=== PATIENT | male | born 1970 | race Caucasian/White ===

== ENCOUNTER → 2024-07-14 | Outpatient (CLI) | payer OTHER, SELFPAY | END | disposition left against medical advice (07) | PROVIDERS: Visit Provider Student in an Organized Health Care Education/Training Program | DX: Z53.21 Procedure and treatment not carried out due to patient leaving prior to being seen by health care provider (principal) ==

== ENCOUNTER 2024-07-20 15:51 | Emergency (ER) | payer MEDICAID, SELFPAY ==
[2024-07-20 15:55] VITALS: PULSE 88; O2SAT 96
--- NOTE | 2024-07-20 15:55 | PC.NURSE ---
PT BROUGHT BY AMBULANCE WITH C/O FOAM FROM WOUND VAC TO ABD STUCK IN WOUND AND CLINIC UNABLE TO REMOVE FOAM. PT STATES HAD SURGERY FOR BOWEL OBSTRUCTION IN MAY AND STATES IT WAS AN EMERGENCY AND I WENT IN THE HOSPITAL ON 05/31 AND GOT OUT 07/03. tHE SURGERY WAS DONE OUT OF STATE.
[2024-07-20 15:57] VITALS: BP 115/86; PULSE 83; RESP 20; TEMP 36.7; O2SAT 99
--- NOTE | 2024-07-20 15:58 | PD.EDADULT ---
ED General RME/HPI General Chief complaint: Skin/Abscess/Foreign Body Stated complaint: WOUND VAC FOAM STUCK IN WOUND Time Seen by Provider: 07/20/24 15:56 Arrival date/time: 07/20/24 15:51 CC: 1: Surgical foam lodged in a abdominal surgical site, 2 culture and sensitivity from surgical site shows Pseudomonas and staph. [facility] requesting antibiotics. The patient presents with no specific complaint other than the abdominal surgical site where he had a code: Resected, wound VAC ribbon placed on the site for the last 4 days removed today the wound is for the most part closed however he states that there is surgical foam embedded in the distal portion of this surgical site and is painful when they attempt to remove it. EMS reports stable vital signs patient is nontoxic-appearing not in any acute distress. Related Data Allergies Allergy/AdvReac Type Severity Reaction Status Date / Time No Known Allergies Allergy Verified 07/20/24 16:15 ED Exam Narrative Physical exam: [General: Obese not in anyacute distress Head normocephalic HEENT: Within acceptable limits Neck is supple nontender Chest equal chest rise nontender to palpation Respiratory: Clear to auscultation no wheezes crackles or rubs CV: Rate rhythm is regular no murmurs rubs or clicks Abdomen is Back: No CVA tenderness no spinous process tenderness from cervical spine thoracic and lumbar spine Skin: Center abdominal vertical surgical site: intact no petechiae rash induration ulceration or crepitus Extremities: Moving all extremity against resistance cap refill less than 2 seconds neurosensory intact Neuro: Awake alert oriented x3 Glascow coma 15 no focal deficits] Course Quality Measures none Orders Category Date Time Status Saline [Insert IV] NOW Care 07/20/24 16:52 Completed Set Up Suture Tray STAT Care 07/20/24 16:52 Completed CBC Stat Lab 07/20/24 16:09 Completed CMP [Comprehensive Metabolic Panel] Stat Lab 07/20/24 16:09 Completed PT [Prothrombin Time with INR] Stat Lab 07/20/24 16:09 Completed PTT [Partial Thromboplastin Time] Stat Lab 07/20/24 16:09 Completed LORazepam [Ativan Inj] Med 07/20/24 16:52 Discontinued 2 mg IVP X1 ONE Sodium Chloride 0.9% 500 ml [Ns] 500 ml Med 07/20/24 16:54 Discontinued IV 999 mls/hr fentaNYL INJ [Sublimaze Inj] Med 07/20/24 16:52 Discontinued 100 mcg IVP X1 ONE Vital Signs Vital signs: Vital Signs Temperature 98.0 F 07/20/24 15:57 Pulse Rate 83 07/20/24 15:57 Respiratory Rate 20 07/20/24 15:57 Blood Pressure 115/86 H 07/20/24 15:57 Pulse Oximetry (%) 99 07/20/24 15:57 Oxygen Delivery Method Room Air 07/20/24 15:57 Procedures -ED Procedure Comment Removal of the surgical foam from the surgical site verbal consent obtained, anesthesia patient given 100 mcg of fentanyl and 2 of Ativan, and under sterile conditions, surgical foam was removed in a single motion without any complications peeling away intact and 1 piece from the open surgical area, there is pink granulated tissue with oozing blood from underneath there no dehiscence induration ulceration, no exudate. Patient tolerated this procedure well wet-to-dry dressing was applied. [facility] Patient data External records reviewed:: [facility] previous records and EMS form Clinical information provided by:: patient and EMS Social determinants that could affect healthcare access:: none Patient has the following chronic illnesses:: Hypertension How is presenting disease/condition affected by chronic disease/condition?: uneffected by Evaluation data The following diagnostics were reviewed and interpreted by me:: lab results Lab and/or radiology exams considered but not ordered:: CBC shows no acute leukocytosis anemia thrombocytopenia CMP shows no significant electrolyte imbalances there is an elevated glucose level no renal impairment transaminitis Interpretation Summary: Patient tolerated removal of the foam without complication Medications Medications considered but not ordered:: None Medication administrations:: Medication Administration History Discontinued Medications Fentanyl Citrate (Fentanyl Cit Inj 50 Mcg/Ml Amp 2ml) 100 mcg IVP X1 ONE Stop: 07/20/24 16:53 Last Admin: 07/20/24 17:44 Dose: 100 mcg Documented By: Dilan Sodium Chloride (Ns) 500 mls @ 999 mls/hr IV .Q31M ONE Stop: 07/20/24 17:24 Last Infusion: 07/20/24 19:03 Dose: Infused Documented By: Admin: 07/20/24 17:41 Dose: 999 mls/hr Documented By: Dilan Lorazepam (Lorazepam 2 Mg/Ml Vial) 2 mg IVP X1 ONE Stop: 07/20/24 16:53 Last Admin: 07/20/24 17:46 Dose: 2 mg Documented By: [facility] None Consultations Consultation(s) initiated? (list below): No Diagnosis Differential Diagnosis ED Complaint MDM: Surgical wound dehiscence, and betterment of surgical foam into the tissue Most likely diagnosis given after review of the tests above:: Embedment of surgical foam into tissue with removal Admission Indicated Admission indicated?: not indicated Explain why admission is indicated or not indicated:: Stable for outpatient follow-up Admission Request Was there a request for admission?: No Disposition Plan Disposition Plan: Discharge Discharge Attestation Discharge Attestation: The patient and all family members were given an opportunity to ask questions and understood the discharge instructions. Discharge instructions specifically effects, indications for sooner follow up or return to the emergency department, and the expected course of current diagnosis. Patient condition: Stable Medical Decision Making Differential Diagnosis Differential Diagnosis: Surgical wound dehiscence, and betterment of surgical foam into the tissue Lab Data 07/20/24 16:09 07/20/24 16:09 Labs: Lab Results 07/20/24 Range/Units 16:09 WBC 7.9 (3.8-10.6) Thou/mm3 RBC 4.30 L (4.50-5.90) Miln/mm3 Hgb 11.9 L (13.5-16.0) g/dL Hct 38.2 L (41.0-53.0) % MCV 89 (80-100) fL MCH 27.7 (25.0-35.0) pg MCHC 31.2 (31.0-37.0) g/dl RDW Std Deviation 69.0 H (35.1-43.9) fL Plt Count 344 (140-440) Thou/mm3 Neut % (Auto) 43 (37-80) % Lymph % (Auto) 49 (10-50) % [place] % (Auto) 6 (0-12) % Eos % (Auto) 1 (0-10) % Baso % (Auto) 1 (0-2.5) % Neut # (Auto) 3.4 (1.8-7.7) Thou/mm3 Lymph # (Auto) 3.9 (1.0-4.8) Thou/mm3 [place] # (Auto) 0.5 (0.0-0.8) Thou/mm3 Eos # (Auto) 0.1 (0.0-0.5) Thou/mm3 Baso # (Auto) 0.0 (0.0-0.2) Thou/mm3 Immature Gran # (Auto) 0.02 H (0.00-0.00) Thou/mm3 Absolute Nucleated RBC 0.00 (0.00-0.00) Thou/mm3 Immature Gran % 0 (0-0) % Nucleated RBC % 0 (0) /100 WBC PT 13.0 H (9.0-12.2) Seconds INR 1.2 (0.9-1.3) APTT 27.9 (22.0-36.0) Seconds Sodium 141 (136-145) mMol/L Potassium 4.3 (3.4-5.1) mMol/L Chloride 108 H (98-107) mMol/L Carbon Dioxide 24.3 (20.0-31.0) mMol/L Anion Gap 9 (7-16) BUN 16 (9-23) mg/dL Creatinine 1.2 (0.6-1.3) mg/dL Estim Creat Clear Calc 93.6 (>60) mL/min eGFR > 60 (60 - ) See Note BUN/Creatinine Ratio 13 (12-20) Ratio Glucose 90 (74-106) mg/dL Calculated Osmolality 282 (275-295) Calcium 8.8 (8.3-10.6) mg/dL Corrected Calcium 8.8 (8.5-10.1) mg/dL Total Bilirubin 0.7 (0.3-1.2) mg/dL AST 23 (0-34) U/L ALT 29 (10-49) U/L Alkaline Phosphatase 82 (46-116) U/L Total Protein 6.7 (5.7-8.2) gm/dL Albumin 4.0 (3.5-5.0) gm/dL Globulin 2.7 (2.3-3.5) gm/dL Albumin/Globulin Ratio 1.5 (1.2-2.2) Discharge Plan Plan Patient Disposition: HOME (Self Care) Patient condition on transfer: Stable Prescriptions/Referrals Referrals: Tamiko Means PA-C ([facility]) [Primary Care Provider] - In 1 week Problem List Clinical Impression: Encounter for post surgical wound check Patient/Caregiver Discharge Instructions Other Activity Instructions:: Continue with your wound VAC, or wet to dry dressing, take the clindamycin as stated you have no signs of an active infection at this time. If there is a worsening of symptoms return the emergency room immediately for further evaluation. Print Language: Singaporean Stand Alone Forms: Chey Award Info., Work/School Release, Patient Portal Info Letter Attestation Attestation The patient was seen by the midlevel practitioner. I, the co-signing physician, was present during the entire ER visit. While I did not physically examine the patient, I was available for consultation as needed.
[2024-07-20 15:59] VITALS: BMI 39.7
[2024-07-20 16:18] LABS: Basophils % (Auto) 1 % (0-2.5); Eosinophils # (Auto) 0.1 Thou/mm3 (0.0-0.5); Eosinophils % (Auto) 1 % (0-10); Hematocrit 38.2 % (41.0-53.0); Hemoglobin 11.9 g/dL (13.5-16.0); Immature Granulocytes % (Auto) 0 % (0-0); Immature Granulocytes Auto 0.02 Thou/mm3 (0.00-0.00); Lymphocytes # (Auto) 3.9 Thou/mm3 (1.0-4.8); Lymphocytes % (Auto) 49 % (10-50); Mean Corpuscular HGB Conc 31.2 g/dl (31.0-37.0); Mean Corpuscular Hemoglobin 27.7 pg (25.0-35.0); Mean Corpuscular Volume 89 fL (80-100); Monocytes # (Auto) 0.5 Thou/mm3 (0.0-0.8); Monocytes % (Auto) 6 % (0-12); Neutrophils # (Auto) 3.4 Thou/mm3 (1.8-7.7); Neutrophils % (Auto) 43 % (37-80); Nucleated Red Blood Cell % 0 /100 WBC (0); Platelet Count 344 Thou/mm3 (140-440); White Blood Count 7.9 Thou/mm3 (3.8-10.6)
[2024-07-20 16:36] LABS: INR 1.2 (0.9-1.3); Partial Thromboplastin Time 27.9 Seconds (22.0-36.0)
[2024-07-20 16:38] LABS: Alanine Aminotransferase 29 U/L (10-49); Albumin/Globulin Ratio 1.5 (1.2-2.2); Alkaline Phosphatase 82 U/L (46-116); Anion Gap 9 (7-16); Aspartate Amino Transferase 23 U/L (0-34); BUN/Creatinine Ratio 13 Ratio (12-20); Bilirubin,Total 0.7 mg/dL (0.3-1.2); Blood Urea Nitrogen 16 mg/dL (9-23); Calcium 8.8 mg/dL (8.3-10.6); Calcium (Corrected) 8.8 mg/dL (8.5-10.1); Carbon Dioxide 24.3 mMol/L (20.0-31.0); Chloride 108 mMol/L (98-107); Creatinine (Component) 1.2 mg/dL (0.6-1.3); Estimated Creatinine Clearance 93.6 mL/min (>60); Globulin 2.7 gm/dL (2.3-3.5); Glucose 90 mg/dL (74-106); Osmolality,Calculated 282 (275-295); Potassium 4.3 mMol/L (3.4-5.1); Sodium 141 mMol/L (136-145); Total Protein 6.7 gm/dL (5.7-8.2); eGFR > 60 See Note
[2024-07-20] MEDS: SODIUM CHLORIDE 0.9% 500 ML 500 ML 999 ML IV (17:41)
[2024-07-20] MEDS: fentaNYL CIT INJ 50 mCg/ML AMP 2ML 100 MCG IVP (17:44)
[2024-07-20] MEDS: LORazepam 2 MG/ML VIAL IVP (17:46)
[2024-07-20 18:00] VITALS: PULSE 83; RESP 18; O2SAT 95
--- NOTE | 2024-07-20 18:23 | PC.NURSE ---
PE VERY SLEEPY S/P FENTANYL AND ATIVAN. WILL DISCHARGE WHEN AWAKE
[2024-07-20 19:41] VITALS: BP 120/88; PULSE 85; RESP 16; O2SAT 98
== END 2024-07-20 19:42 | disposition home or self-care (01) ==
PROVIDERS: Registered Nurse General Practice; Emergency Provider Emergency Medicine; PCP Nurse Practitioner Family
DX: Z48.01 Encounter for change or removal of surgical wound dressing (principal)
CPT/HCPCS: 36415; 80053; 85025; 85610; 85730; 96361; 96374; 96375; 99284; J2060; J3010; J7040

== ENCOUNTER → 2024-08-04 | Outpatient (CLI) | payer MEDICAID, SELFPAY | END | disposition home or self-care (01) | PROVIDERS: PCP Nurse Practitioner Family; Referring Provider Nurse Practitioner Family; Visit Provider Surgery | DX: T81.89XA Other complications of procedures, not elsewhere classified, initial encounter (principal); E11.40 Type 2 diabetes mellitus with diabetic neuropathy, unspecified | CPT/HCPCS: 99214; A9270; G0463 ==

== ENCOUNTER → 2024-10-13 | Outpatient (CLI) | payer MEDICAID, SELFPAY ==
--- NOTE | 2024-10-13 14:49 | XR_ITS ---
Examination: Abdomen 2 views TECHNIQUE: Supine upright abdomen 2 views Exam date and time: October 13, 2024 1519 hours INDICATIONS: Diarrhea nausea vomiting beginning May 2024. FINDINGS: Mild to moderate colonic ileus No free air No obstruction No soft tissue mass IMPRESSION: Mild to moderate colonic ileus
== END | disposition home or self-care (01) ==
LOC: CDIM 14:39
PROVIDERS: PCP Nurse Practitioner Family; Referring Provider Nurse Practitioner Family; Visit Provider Nurse Practitioner Family
DX: K56.7 Ileus, unspecified (principal); Z87.19 Personal history of other diseases of the digestive system
CPT/HCPCS: 74019

== ENCOUNTER 2024-11-17 10:11 | Emergency (ER) | payer MEDICAID, SELFPAY ==
--- NOTE | 2024-11-17 | XR_ITS ---
MRI abdomen, without contrast. MRCP Date and time of exam: November 17, 2024 1338 hours INDICATIONS: Epigastric pain beginning 2 days ago Technique: Multiple axial and coronal images of the abdomen have been obtained with the Siemens 1.5T MRI scanner. Images obtained included T1 weighted transverse images, T2-weighted transverse images, T2-weighted transverse images fat-suppressed, T2 weighted haste fat suppressed transverse images, T1 weighted images, in and out of phase images, T2-weighted coronal images, breath hold, T2 weighted haze coronal images as well as T2 weighted coronal thick slab images, MRCP. Findings: Hepatomegaly, 21 cm, liver mildly irregular in contour No gallstones Gallbladder wall does not appear thickened Common hepatic duct common bile duct 2 to 3 mm no stones No pancreatic mass or peripancreatic edema Moderate bilateral renal parenchymal scar formation No hydronephrosis No ascites Aorta normal size Spleen not enlarged IMPRESSION: Hepatomegaly 21 cm, suspect primary hepatocellular disease Negative for cholelithiasis, negative for cholecystitis Normal common hepatic common bile ducts
[2024-11-17 10:33] VITALS: PULSE 82; O2SAT 96; BMI 35.2
[2024-11-17 10:41] VITALS: PULSE 95
--- NOTE | 2024-11-17 10:54 | PD.EDCHEST ---
ED Chest Pain RME/HPI General Chief Complaint: Chest Pain Stated Complaint: CHESY WALL PAIN Time Seen by Provider: 11/17/24 10:54 Arrival date/time: 11/17/24 10:11 RME / HPI RME / HPI narrative: DR. JANKI CHAVES ED EVALUATION: 54 year old male presents to the Emergency Department BIBA sent by the [facility] for chest pain. Patient states he has been having chest pain for a couple of days but last night at 9 PM it was worse. He states that laying down flat and deep breaths exacerbate his pain. He also mentions that sitting up straight ameliorates his pain. He states he snores a lot but it has been better since he lost 100 pounds last year. Normal appetite reported. He states that last night he ate a sandwich at 6 PM and no problems. Patient also states that he has a cough for 3 months. Patient denies any fevers, chills, sick contacts, or any other symptoms at this time. PMHx: Atrial fibrillation on Eliquis and hypertension. He had 2/3 of the small intestine removed due to ischemia from his atrial fibrillation. Social Hx: No tobacco, alcohol, or substance use. Related Data Allergies Allergy/AdvReac Type Severity Reaction Status Date / Time No Known Allergies Allergy Verified 07/20/24 16:15 Review of Systems Review of Systems Systems Reviewed: All systems reviewed, normal except as documented Past Medical History Past Medical History CARDIAC: Positive Cardiac Disorders, Atrial Fibrillation and Hypertension GASTROINTESTINAL: Positive Obstructive Bowel ENDOCRINE: Positive Diabetes Mellitus Type 2 Surgical History SURGICAL: Positive Abdominal Surgery (BOWEL OBSTRUCTION) Social History SMOKING STATUS: Former smoker SUBSTANCE USE: does not use ALCOHOL: Never ED Exam Narrative Physical exam: GENERAL APPEARANCE: AxOx4, generally well-appearing, no acute distress. HEENT: NC, AT. MMM. EOMI, oropharynx clear. Icteric sclera NECK: Supple without lymphadenopathy. No stiffness or restricted ROM. HEART: Normal rate and regular rhythm, normal S1/S1, no m/r/g LUNGS: CTAB, moving air well. No crackles or wheezes are heard. ABDOMEN: Soft, nontender, nondistended with good bowel sounds heard. BACK: No midline C/T/L spine pain or deformity, No CVAT, no obvious deformity. EXTREMITIES: Without cyanosis, clubbing or edema. MUSCULOSKELETAL: FROM of all major joints, no chest tenderness NEUROLOGICAL: Grossly nonfocal. Alert and oriented, moving all 4 extremities. CN not formally tested but appear grossly intact. Skin: Warm and dry without any rash. Course Quality Measures none Orders Category Date Time Status MRI Screening NOW Care 11/17/24 12:24 Active NPO NOW Care 11/17/24 12:29 Active Diet NPO (NOW) Diet 11/17/24 12:29 Active MR MRCP Stat Exams 11/17/24 Completed US gall bladder Stat Exams 11/17/24 12:23 Completed XR chest 2V Stat Exams 11/17/24 11:04 Completed CBC Stat Lab 11/17/24 11:25 Completed CMP [Comprehensive Metabolic Panel] Stat Lab 11/17/24 11:25 Completed Lipase Stat Lab 11/17/24 11:25 Completed Troponin I Stat Lab 11/17/24 11:25 Completed Famotidine Inj [Pepcid Inj] Med 11/17/24 11:00 Discontinued 40 mg IVP X1 ONE Morphine Inj Med 11/17/24 10:56 Discontinued 4 mg IVP X1 ONE Morphine Inj Med 11/17/24 15:34 Once 4 mg IVP X1 ONE Potassium Chloride [K-Dur] Med 11/17/24 12:06 Discontinued 40 meq PO X1 ONE Sodium Chloride 0.9% 1000 ml [Ns] 1,000 ml Med 11/17/24 12:28 Discontinued IV 999 mls/hr Sodium Chloride 0.9% 1000 ml [Ns] 1,000 ml Med 11/17/24 14:56 Active IV 999 mls/hr Vital Signs Vital signs: Vital Signs Pulse Rate 95 11/17/24 10:41 Chest Pain MDM Narrative MDM Narrative:: IVivian am scribing for and in the presence of Dr. Mancilla. Patient data External records reviewed:: EMS form Clinical information provided by:: patient and EMS Social determinants that could affect healthcare access:: none Patient has the following chronic illnesses:: Atrial fibrillation on Eliquis and hypertension. He had 2/3 of the small intestine removed due to ischemia from his atrial fibrillation. How is presenting disease/condition affected by chronic disease/condition?: exacerbated by Evaluation data The following diagnostics were reviewed and interpreted by me:: lab results and radiology exam(s) Lab and/or radiology exams considered but not ordered:: none Interpretation Summary: Bilirubin 3.0 Potassium 2.6 RADIOLOGY Procedure(s): XR chest 2V Accession Number(s): [id number] cc: Tamiko Means PA-C ([facility]); Scott Mancilla MD; Dieter Morgan MD~ Examination: PA lateral chest 2 views TECHNIQUE: Upright PA lateral chest 2 views Exam date and time: 12/01/2025 1121 hours INDICATIONS: Chest pain beginning last night. FINDINGS: Pneumonia posterior basal segment right lower lobe Mild prominence left ventricle Mild osteopenia Mild to moderate diffuse thoracic degenerative disc disease IMPRESSION: Pneumonia posterior basal segment right lower lobe 8mm pulmonary nodule right lower lobe, in the absence of prior films, recommend 3 month follow-up PA chest Dictated By: Dieter Morgan MD Procedure(s): US gall bladder Accession Number(s): [id number] cc: Tamiko Means PA-C ([facility]); Scott Mancilla MD; Dieter Morgan MD~ Examination: Abdomen sonogram, Limited Date and time of exam: November 17, 2024 at 1242 hours INDICATIONS: Epigastric pain beginning 2 days ago Technique: Real-time vora scale transabdominal sonographic images of the upper abdomen obtained. Findings: Negative for gallstones Gallbladder wall is abnormally thickened, measuring up to 0.81 cm Common bile duct 0.3 cm Pancreatic head 2.8 cm Liver 18 cm lobular contour fatty infiltration Normal hepatopedal portal venous flow Patent IVC IMPRESSION: Suspicious for acalculous cholecystitis, recommend MRCP or HIDA scan follow-up Dictated By: Dieter Morgan MD Procedure(s): MR MRCP Accession Number(s): [id number] cc: Tamiko Means PA-C ([facility]); Scott Mancilla MD; Dieter Morgan MD~ MRI abdomen, without contrast. MRCP Date and time of exam: November 17, 2024 1338 hours INDICATIONS: Epigastric pain beginning 2 days ago Technique: Multiple axial and coronal images of the abdomen have been obtained with the Siemens 1.5T MRI scanner. Images obtained included T1 weighted transverse images, T2-weighted transverse images, T2-weighted transverse images fat-suppressed, T2 weighted haste fat suppressed transverse images, T1 weighted images, in and out of phase images, T2-weighted coronal images, breath hold, T2 weighted haze coronal images as well as T2 weighted coronal thick slab images, MRCP. Findings: Hepatomegaly, 21 cm, liver mildly irregular in contour No gallstones Gallbladder wall does not appear thickened Common hepatic duct common bile duct 2 to 3 mm no stones No pancreatic mass or peripancreatic edema Moderate bilateral renal parenchymal scar formation No hydronephrosis No ascites Aorta normal size Spleen not enlarged IMPRESSION: Hepatomegaly 21 cm, suspect primary hepatocellular disease Negative for cholelithiasis, negative for cholecystitis Normal common hepatic common bile ducts Dictated By: Dieter Morgan MD Medications / Prescriptions Medications or Prescriptions considered but not ordered:: none Medication administrations:: Medication Administration History Sodium Chloride (Ns) 1,000 mls @ 999 mls/hr IV .Q1H1M ONE Stop: 11/17/24 15:56 Morphine Sulfate (Morphine Sulf Inj 10 Mg/Ml Vial) 4 mg IVP X1 ONE Stop: 11/17/24 15:35 Discontinued Medications Famotidine (Famotidine Inj 10 Mg/Ml Vial 2 Ml) 40 mg IVP X1 ONE Stop: 11/17/24 11:01 Last Admin: 11/17/24 12:42 Dose: 40 mg Documented By: LP Sodium Chloride (Ns) 1,000 mls @ 999 mls/hr IV .Q1H1M ONE Stop: 11/17/24 13:28 Last Admin: 11/17/24 12:44 Dose: 999 mls/hr Documented By: LP Morphine Sulfate (Morphine Sulf Inj 10 Mg/Ml Vial) 4 mg IVP X1 ONE Stop: 11/17/24 10:57 Last Admin: 11/17/24 12:42 Dose: 4 mg Documented By: LP Potassium Chloride (Potassium Chloride 20 Meq Tabcr) 40 meq PO X1 ONE Stop: 11/17/24 12:07 Last Admin: 11/17/24 12:43 Dose: 40 meq Documented By: LP see above Consultations Consultation(s) initiated? (list below): No Diagnosis Chest Pain Differential Diagnosis: atypical chest pain, st elevation myocardial infarction, costochondritis, chest pain and biliary colic Most likely diagnosis given after review of the tests above:: Acute epigastric pain Jaundice Admission Indicated Admission indicated?: not indicated Admission Request Was there a request for admission?: No Disposition Plan Disposition Plan: Discharge Discharge Attestation Discharge Attestation: The patient and all family members were given an opportunity to ask questions and understood the discharge instructions. Discharge instructions specifically effects, indications for sooner follow up or return to the emergency department, and the expected course of current diagnosis. Patient condition: Stable Discharge Plan Plan Patient Disposition: HOME (Self Care) Prescriptions/Referrals Referrals: Tamiko Means PA-C ([facility]) [Primary Care Provider] - In 1 week Problem List Clinical Impression: Acute epigastric pain, Jaundice Patient/Caregiver Discharge Instructions Education Materials: ED Epigastric Pain (Uncertain Cause) Additional Instructions: You can take [id number] famotidine (Pepcid), 20 mg twice a day for the next 7 days. For the meantime consider readdressing any dietary indiscretion such as high fatty and sugary foods. Avoid alcohol and Tylenol until further testing is done but with your primary care doctor. Also it would be prudent to recontact the gastroenterology referral that she had for a follow-up appointment as well. Feel free return to the emerged department sooner if symptoms worsen or if notes any new, concerning issues Print Language: Lithuanian Stand Alone Forms: [employer]y Award Info., Patient Portal Info Letter
--- NOTE | 2024-11-17 11:04 | XR_ITS ---
Examination: PA lateral chest 2 views TECHNIQUE: Upright PA lateral chest 2 views Exam date and time: 12/01/2025 1121 hours INDICATIONS: Chest pain beginning last night. FINDINGS: Pneumonia posterior basal segment right lower lobe Mild prominence left ventricle Mild osteopenia Mild to moderate diffuse thoracic degenerative disc disease IMPRESSION: Pneumonia posterior basal segment right lower lobe 8mm pulmonary nodule right lower lobe, in the absence of prior films, recommend 3 month follow-up PA chest
[2024-11-17 11:08] VITALS: BP 137/104; PULSE 91; RESP 27; TEMP 37.4; O2SAT 90
[2024-11-17 11:38] LABS: Basophils % (Auto) 1 % (0-2.5); Eosinophils % (Auto) 1 % (0-10); Hematocrit 34.5 % (41.0-53.0); Hemoglobin 11.4 g/dL (13.5-16.0); Immature Granulocytes % (Auto) 0 % (0-0); Immature Granulocytes Auto 0.02 Thou/mm3 (0.00-0.00); Lymphocytes # (Auto) 1.8 Thou/mm3 (1.0-4.8); Lymphocytes % (Auto) 20 % (10-50); Mean Corpuscular Hemoglobin 28.3 pg (25.0-35.0); Mean Corpuscular Volume 86 fL (80-100); Monocytes # (Auto) 0.7 Thou/mm3 (0.0-0.8); Monocytes % (Auto) 8 % (0-12); Neutrophils # (Auto) 6.2 Thou/mm3 (1.8-7.7); Neutrophils % (Auto) 70 % (37-80); Nucleated Red Blood Cell % 0 /100 WBC (0); Platelet Count 193 Thou/mm3 (140-440); RDW Standard Deviation 46.1 fL (35.1-43.9); Red Blood Count 4.03 Miln/mm3 (4.50-5.90); White Blood Count 8.8 Thou/mm3 (3.8-10.6)
[2024-11-17 11:58] LABS: Alanine Aminotransferase 27 U/L (10-49); Albumin, Serum 4.2 gm/dL (3.5-5.0); Albumin/Globulin Ratio 1.6 (1.2-2.2); Alkaline Phosphatase 66 U/L (46-116); Anion Gap 12 (7-16); Aspartate Amino Transferase 15 U/L (0-34); BUN/Creatinine Ratio 12 Ratio (12-20); Blood Urea Nitrogen 17 mg/dL (9-23); Calcium 7.9 mg/dL (8.3-10.6); Calcium (Corrected) 7.9 mg/dL (8.5-10.1); Carbon Dioxide 24.6 mMol/L (20.0-31.0); Chloride 108 mMol/L (98-107); Creatinine (Component) 1.4 mg/dL (0.6-1.3); Estimated Creatinine Clearance 74.5 mL/min (>60); Globulin 2.7 gm/dL (2.3-3.5); Glucose 97 mg/dL (74-106); Lipase 23 U/L (12-53); Osmolality,Calculated 290 (275-295); Sodium 145 mMol/L (136-145); Total Protein 6.9 gm/dL (5.7-8.2); Troponin I 0.044 ng/mL (0.0-0.045); eGFR 59 See Note
[2024-11-17 12:01] LABS: Potassium 2.6 mMol/L (3.4-5.1)
--- NOTE | 2024-11-17 12:03 | PC.NURSE ---
Call from [facility] in lab; pt's potassium 2.6. Provider will be informed.
--- NOTE | 2024-11-17 12:23 | XR_ITS ---
Examination: Abdomen sonogram, Limited Date and time of exam: November 17, 2024 at 1242 hours INDICATIONS: Epigastric pain beginning 2 days ago Technique: Real-time vora scale transabdominal sonographic images of the upper abdomen obtained. Findings: Negative for gallstones Gallbladder wall is abnormally thickened, measuring up to 0.81 cm Common bile duct 0.3 cm Pancreatic head 2.8 cm Liver 18 cm lobular contour fatty infiltration Normal hepatopedal portal venous flow Patent IVC IMPRESSION: Suspicious for acalculous cholecystitis, recommend MRCP or HIDA scan follow-up
[2024-11-17] MEDS: MORPHINE SULF INJ 10 MG/ML VIAL 4 MG IVP ×2 (12:42→15:56)
[2024-11-17] MEDS: FAMOTIDINE INJ 10 MG/ML VIAL 2 ML 40 MG IVP (12:42)
[2024-11-17] MEDS: POTASSIUM CHLORIDE 20 mEq TABCR 40 MEQ PO (12:43)
[2024-11-17] MEDS: SODIUM CHLORIDE 0.9% 1000 ML 1,000 ML 999 ML IV ×2 (12:44→15:57)
[2024-11-17 14:46] VITALS: BP 143/100; PULSE 103; RESP 26; TEMP 36.8; O2SAT 94
[2024-11-17 16:18] VITALS: BP 131/102; PULSE 99; RESP 23; TEMP 36.9; O2SAT 91
[2024-11-17 17:40] VITALS: BP 119/94; PULSE 97; RESP 22; TEMP 37
== END 2024-11-17 17:40 | disposition home or self-care (01) ==
PROVIDERS: Emergency Provider Emergency Medicine; PCP Nurse Practitioner Family
DX: R10.13 Epigastric pain (principal); R17 Unspecified jaundice; R07.9 Chest pain, unspecified
CPT/HCPCS: 36415; 71046; 76705; 80053; 83690; 84484; 85025; 96361; 96374; 96375; 96376; 99284; J2270; J3490; J7030; S8037; 74181; A9270

== ENCOUNTER 2024-11-29 17:49 | Inpatient (IN) | payer MEDICAID, SELFPAY ==
[2024-11-29] VITALS (10 sets, daily range): BP systolic 92–143; BP diastolic 72–95; PULSE 87–129; RESP 17–90; TEMP 36–37.9; O2SAT 90–99; BMI 35.2
--- NOTE | 2024-11-29 18:03 | EKG_ITS ---
[facility] Test Date: 2024-11-29 Pat Name: CATHERINE JAMES Department: Room: - Gender: Male Beef Ribber: : 1970 Requested By: ED Temporary Provider Order Number: [id number] Reading MD: ED Temporary Provider Measurements Intervals [place] Rate: 141 P: [place]: QRS: -83 QRSD: 103 T: 84 QT: 322 QTc: 494 Interpretive Statements ATRIAL FIBRILLATION WITH RAPID VENTRICULAR RESPONSE WITH ABERRANT CONDUCTION OR VENTRICULAR PREMATURE COMPLEXES LEFT AXIS DEVIATION [QRS AXIS < -30] SEPTAL MYOCARDIAL INFARCTION , PROBABLY OLD [40+ ms Q WAVE IN V1/V2] No previous ECG available for comparison /[id number]/[email or web address]/[id number]
--- NOTE | 2024-11-29 18:10 | PD.EDSOB ---
ED SOB =RME/HPI General Chief Complaint: Shortness of Breath/Dyspnea Stated Complaint: SOB Time Seen by Provider: 11/29/24 18:10 Arrival date/time: 11/29/24 17:49 RME / HPI RME / HPI Narrative: This section includes all my notes and documentations, including HPI, PE, and ED course. Chencho Keating MD HPI: 54-year-old male with several days of worsening cough, productive cough, purulent sputum, and dyspnea. 3 neb treatments given by EMS. No chest pain. No obvious fever. No other complaints. ROS: All negative except as documented in HPI. Physical Exam: General: Alert and oriented. In mild respiratory distress. Eyes: Conjunctivae and lids clear. ENT: No nasal congestion. Neck: Supple. Heart: Atrial fibrillation with RVR (150 bpm). Lungs: Mild respiratory distress. Moderately decreased air movement with rales. Abdomen: Soft and nontender. Back: No CVA tenderness. Skin: Warm and dry. Neuro: Alert and oriented X 3. I reviewed all diagnostic test results. My interpretation of the EKG is atrial fibrillation with RVR. My interpretation of the chest x-ray is no acute findings. Blood tests and urine tests remarkable for K 2.7, CR 1.8, Mg < 0.5, troponin 0.073, BNP 1068. At this point, diagnoses include acute respiratory failure, atrial fibrillation with RVR, hypokalemia, hypomagnesemia, elevated troponin, and ANANYA. Treatment here included Cardizem bolus and drip, Solu-Medrol, KCl, and MgSO4 IV. I discussed the case with our hospitalist. About the presentation and exam and diagnostics and treatments here. And need of further care in the hospital. Will accept the patient. Chencho Keating MD Related Data Allergies Allergy/AdvReac Type Severity Reaction Status Date / Time No Known Allergies Allergy Verified 11/29/24 18:03 Course Quality Measures none Orders Category Date Time Status Bedside COVID-19 Antigen Test NOW Care 11/29/24 19:35 Active COVID-19 Screening Questionnaire NOW Care 11/29/24 20:48 Completed Decision to Admit X1 Care 11/29/24 20:47 Active EKG (ED ONLY) *Do not use* NOW Care 11/29/24 18:03 Completed Saline [Insert IV] NOW Care 11/29/24 18:10 Active EKG (ED Only) Stat Exams 11/29/24 18:03 Draft XR chest 1V portable Stat Exams 11/29/24 18:11 Completed ABG [Arterial Blood Gas] Stat Lab 11/29/24 20:14 Completed BNP [B-Type Natriuretic Peptide] Stat Lab 11/29/24 18:18 Completed CBC Stat Lab 11/29/24 18:18 Completed CMP [Comprehensive Metabolic Panel] Stat Lab 11/29/24 18:18 Completed D-Dimer Stat Lab 11/29/24 18:18 Completed Magnesium Stat Lab 11/29/24 18:18 Completed RSV [Respiratory Syncytial Virus Ag] Stat Lab 11/29/24 18:12 Ordered TSH [Thyroid Stimulating Hormone] Stat Lab 11/29/24 18:18 Completed Troponin I Stat Lab 11/29/24 18:18 Completed UA, C/S IF [Urinalysis, C/S if Indicated] Stat Lab 11/29/24 18:16 Completed DILTIAZEM in D5W 125 MG Med 11/29/24 18:10 Active 125 mg in 125 ml IV 5 mg/hr Diltiazem Inj [Cardizem Inj] Med 11/29/24 18:10 Discontinued 20 mg IV X1 ONE KCL 10% Liq UDC 15 ML Med 11/29/24 18:58 Discontinued 40 meq PO X1 ONE Ketorolac Inj [Toradol Inj] Med 11/29/24 18:42 Discontinued 30 mg IVP X1 ONE Magnesium Sulfate 4 GM Ivpb [Magnesium Sulfate Ivpb] Med 11/29/24 18:58 Active 4 gm in 50 ml IV X1 MethylPREDNISolone.* [SoluMEDROL Inj] Med 11/29/24 18:10 Discontinued 125 mg IVP X1 ONE Morphine Inj Med 11/29/24 18:42 Discontinued 4 mg IVP X1 ONE Vital Signs Vital signs: Vital Signs Temperature 98.9 F 11/29/24 18:04 Pulse Rate 129 H 11/29/24 18:04 Respiratory Rate 17 11/29/24 18:04 Blood Pressure 143/95 H 11/29/24 18:04 Pulse Oximetry (%) 90 L 11/29/24 18:04 Oxygen Delivery Method Room Air 11/29/24 18:04 Shortness of Breath / Dyspnea Patient data External records reviewed:: [facility] previous records Clinical information provided by:: patient and EMS Social determinants that could affect healthcare access:: none Patient has the following chronic illnesses:: COPD, CHF, atrial fibrillation with RVR How is presenting disease/condition affected by chronic disease/condition?: exacerbated by Evaluation data The following diagnostics were reviewed and interpreted by me:: lab results, radiology exam(s) and EKG tracing(s) (My interpretation of the EKG is: Atrial fibrillation with RVR (141 bpm) with nonspecific ST-T changes. Chencho Keating MD) Lab and/or radiology exams considered but not ordered:: None Interpretation Summary: acute respiratory failure, atrial fibrillation with RVR, hypokalemia, hypomagnesemia, elevated troponin, and ANANYA Medications / Prescriptions Medications or Prescriptions considered but not ordered:: None Medication administrations:: Medication Administration History Acetaminophen (Acetaminophen 325 Mg Tablet) 650 mg PO Q6H PRN PRN Reason: Fever >100.3 or pain 1-3 Stop: 12/29/24 20:49 Apixaban (Apixaban 2.5 Mg Tablet) 5 mg PO BID [facility] Stop: 12/29/24 20:59 Diltiazem HCl (Diltiazem In D5w 125 Mg) 125 mg in 125 mls @ 5 mls/hr IV .Q24H ONE; Protocol Stop: 11/30/24 18:09 Last Admin: 11/29/24 18:56 Dose: 5 mg/hr, 5 mls/hr Documented By: AA Magnesium Sulfate (Magnesium Sulfate Ivpb) 4 gm in 50 mls @ 12.5 mls/hr IV X1 ONE Stop: 11/29/24 22:57 Last Admin: 11/29/24 19:24 Dose: 12.5 mls/hr Documented By: EE Magnesium Sulfate (Magnesium Sulfate Ivpb) 4 gm in 50 mls @ 12.5 mls/hr IV X1 ONE Stop: 11/30/24 02:59 Potassium Chloride (Kcl Ivpb) 10 meq in 100 mls @ 100 mls/hr IV Q1H [facility] Stop: 11/30/24 00:59 Levalbuterol HCl (Levalbuterol Rt 0.63 Mg/3 Ml Nebu) 0.63 mg INH Q4HRRT PRN PRN Reason: wheezing Stop: 12/29/24 22:59 Ondansetron HCl (Ondansetron Inj 2 Mg/Ml Inj 2 Ml) 4 mg IV Q6H PRN; Protocol PRN Reason: NAUSEA OR VOMITING Stop: 12/29/24 20:49 Sennosides (Senna Tablet) 1 tab PO QDAY PRN; Protocol PRN Reason: constipation Stop: 12/29/24 20:49 Discontinued Medications Diltiazem HCl (Diltiazem Inj 5 Mg/Ml Vial 5 Ml) 20 mg IV X1 ONE Stop: 11/29/24 18:11 Last Admin: 11/29/24 18:22 Dose: 20 mg Documented By: AA Ketorolac Tromethamine (Ketorolac Inj 30 Mg/Ml Vial) 30 mg IVP X1 ONE Stop: 11/29/24 18:43 Last Admin: 11/29/24 19:22 Dose: 30 mg Documented By: EE Methylprednisolone Sodium Succinate (Methylprednisolone Sod Succ 62.5 Mg/Ml 2ml Vial) 125 mg IVP X1 ONE Stop: 11/29/24 18:11 Last Admin: 11/29/24 18:21 Dose: 125 mg Documented By: AA Morphine Sulfate (Morphine Sulf Inj 10 Mg/Ml Vial) 4 mg IVP X1 ONE Stop: 11/29/24 18:43 Last Admin: 11/29/24 19:24 Dose: 4 mg Documented By: EE Potassium Chloride (Potassium Chloride 10% 20 Meq/15 Ml Udc) 40 meq PO X1 ONE Stop: 11/29/24 18:59 Last Admin: 11/29/24 19:24 Dose: 40 meq Documented By: EE Treatment here from md included Cardizem bolus and drip, Solu-Medrol, KCl, and MgSO4 IV. Consultations Consultation(s) initiated? (list below): No Diagnosis Shortness of Breath Differential Diagnosis: acute exacerbation of chronic obstructive airways disease, congestive heart failure, community acquired pneumonia, asthma with exacerbation and pulmonary embolism Most likely diagnosis given after review of the tests above:: acute respiratory failure, atrial fibrillation with RVR, hypokalemia, hypomagnesemia, elevated troponin, and ANANYA Admission Indicated Admission indicated?: indicated Explain why admission is indicated or not indicated:: acute respiratory failure, atrial fibrillation with RVR, hypokalemia, hypomagnesemia, elevated troponin, and ANANYA Admission Request Was there a request for admission?: Yes Admission Attestation Admission request attestation: Discussed case with Hospitalist service regarding admission. Discussed patients ED course, exam findings, labs, and radiology results. The Hospitalist [agrees] to accept the patient for admission. Disposition Plan Disposition Plan: Admit Discharge Plan Plan Patient Disposition: Admit Acute Care w/in Hospital Problem List Clinical Impression: Acute respiratory failure with hypoxia, Hypokalemia, Hypomagnesemia, ANANYA (acute kidney injury), Elevated troponin, Atrial fibrillation with RVR
--- NOTE | 2024-11-29 18:11 | XR_ITS ---
Examination: AP chest single view FINDINGS: AP portable upright chest single view Examination type: November 29, 2024 1832 hours Comparison November 17, 2024 INDICATIONS: Shortness of breath today. FINDINGS: Mild to moderate enlargement cardiac contour Moderate elevation right hemidiaphragm Calcified granuloma in the right lower lung zone No lobar pneumonia or pulmonary edema IMPRESSION: Mild to moderate enlargement cardiac contour No pneumonia or pulmonary edema
[2024-11-29] MEDS: MethylPREDNISolone SOD SUCC 62.5 MG/ML 2ML VIAL 125 MG IVP (18:21)
[2024-11-29] MEDS: DILTIAZEM INJ 5 MG/ML VIAL 5 ML 20 MG IV (18:22)
[2024-11-29 18:27] LABS: Collection Type, Urine Clean Catch; Squamous Epithelial Cell,Urine 0 /hpf (0-5)
[2024-11-29 18:27] LABS: Basophils # (Auto) 0.1 Thou/mm3 (0.0-0.2); Basophils % (Auto) 1 % (0-2.5); Eosinophils % (Auto) 0 % (0-10); Hematocrit 35.8 % (41.0-53.0); Hemoglobin 11.6 g/dL (13.5-16.0); Immature Granulocytes % (Auto) 0 % (0-0); Immature Granulocytes Auto 0.03 Thou/mm3 (0.00-0.00); Lymphocytes # (Auto) 2.6 Thou/mm3 (1.0-4.8); Lymphocytes % (Auto) 27 % (10-50); Mean Corpuscular HGB Conc 32.4 g/dl (31.0-37.0); Mean Corpuscular Hemoglobin 29.1 pg (25.0-35.0); Mean Corpuscular Volume 90 fL (80-100); Monocytes # (Auto) 0.5 Thou/mm3 (0.0-0.8); Monocytes % (Auto) 5 % (0-12); Neutrophils # (Auto) 6.3 Thou/mm3 (1.8-7.7); Neutrophils % (Auto) 67 % (37-80); Nucleated Red Blood Cell % 0 /100 WBC (0); Platelet Count 240 Thou/mm3 (140-440); RDW Standard Deviation 52.4 fL (35.1-43.9); Red Blood Count 3.98 Miln/mm3 (4.50-5.90); White Blood Count 9.5 Thou/mm3 (3.8-10.6)
[2024-11-29 18:30] LABS: Bilirubin,Urine Negative (Negative); Blood,Urine Negative (Negative); Clarity,Urine Clear (Clear/Hazy); Color,Urine Lt-Yellow (Lt Yel-Yel); Culture Indicated,Urine Not Indicated; Glucose, Urine Negative (Negative); Ketones,Urine Negative (Negative); Leukocyte Esterase,Urine Negative (Negative); Nitrite,Urine Negative (Negative); PH,Urine 6.5 (5.0-7.0); Protein,Urine Trace (Neg - Trace); RBC,Urine 1 /hpf (0-3); Specific Gravity,Urine 1.007 (1.001-1.035); Urobilinogen,Urine Negative mg/dL (0.0-1.0); WBC,Urine 1 /hpf (0-5)
--- NOTE | 2024-11-29 18:40 | PC.NURSE ---
Patient refused covid and flu testing, did not want a swab all the way up my nose into my brain. Dr Keating made aware.
[2024-11-29 18:45] LABS: Alanine Aminotransferase 22 U/L (10-49); Albumin, Serum 4.1 gm/dL (3.5-5.0); Albumin/Globulin Ratio 1.5 (1.2-2.2); Alkaline Phosphatase 58 U/L (46-116); Anion Gap 13 (7-16); Aspartate Amino Transferase 16 U/L (0-34); B-Type Natriuretic Peptide 1068 pg/mL (0-100); BUN/Creatinine Ratio 9 Ratio (12-20); Bilirubin,Total 2.8 mg/dL (0.3-1.2); Blood Urea Nitrogen 16 mg/dL (9-23); Calcium 7.8 mg/dL (8.3-10.6); Calcium (Corrected) 7.8 mg/dL (8.5-10.1); Carbon Dioxide 22.9 mMol/L (20.0-31.0); Chloride 109 mMol/L (98-107); Creatinine (Component) 1.8 mg/dL (0.6-1.3); Estimated Creatinine Clearance 57.9 mL/min (>60); Globulin 2.8 gm/dL (2.3-3.5); Glucose 101 mg/dL (74-106); Osmolality,Calculated 289 (275-295); Sodium 145 mMol/L (136-145); Total Protein 6.9 gm/dL (5.7-8.2); eGFR 44 See Note
--- NOTE | 2024-11-29 18:50 | PC.NURSE ---
Patient presents to ED via [facility] ambulance with c/o SOB/wheezing x4 days. Per patient has been coughing for a month but now has worsened, patient is being treated for pneumonia and taking abx. Patient is alert and oriented, ambulatory. Patient was treated with albuterol neb inh x 3 prior to arrival with improvement, patient has green phlegm coughing up. Patient with hx of Afib.
[2024-11-29 18:52] LABS: D-Dimer 1240 ng/mL (<600)
[2024-11-29 18:54] LABS: Thyroid Stimulating Hormone 1.08 uIU/mL (0.55-4.78)
[2024-11-29] MEDS: DILTIAZEM in D5W 125 MG 125 MG/125 ML BAG IV ×2 (18:56→23:04)
[2024-11-29 18:57] LABS: Magnesium < 0.5 mg/dL (1.6-2.6)
[2024-11-29 18:58] LABS: Potassium 2.7 mMol/L (3.4-5.1); Troponin I 0.073 ng/mL (0.0-0.045)
[2024-11-29] MEDS: KETOROLAC INJ 30 MG/ML VIAL IVP (19:22)
[2024-11-29] MEDS: MORPHINE SULF INJ 10 MG/ML VIAL 4 MG IVP (19:24)
[2024-11-29] MEDS: Magnesium Sulfate 4 GM Ivpb 4 GM/50 ML BAG IV ×2 (19:24→23:03)
[2024-11-29] MEDS: POTASSIUM CHLORIDE 10% 20 MEQ/15 ML UDC 40 MEQ PO (19:24)
[2024-11-29 20:27] LABS: Base Excess -3 (-3-3); HCO3 22 mEq/L (20-26); Inspired O2, VO2 Liters 2 L/min; Inspired Oxygen, FIO2 21 %; O2 Saturation 93 % (91-98); PCO2 38 mmHg (32.0-48.0); PO2 78 mmHg (83-108); pH, Arterial 7.37 (7.35-7.45)
[2024-11-29 21:11] LABS: Allen Test Performed/OK; Puncture Site Right Radial
[2024-11-29] MEDS: APIXABAN 2.5 MG TABLET 5 MG PO (21:32)
[2024-11-29] MEDS: POTASSIUM CHL 10 mEq IVPB 10 MEQ/100 ML BAG 100 MEQ IV ×3 (21:34→23:57)
[2024-11-29 21:45] LABS: Cardiac Risk Estimate 2.9 RATIO (4.0-6.7); Cholesterol 97 mg/dL (132-200); HDL Cholesterol 33 mg/dL (40-60); LDL Cholesterol,Calculated 46 mg/dL (0-130); Triglycerides 91 mg/dL (30-150)
--- NOTE | 2024-11-29 22:29 | PD.RESHP ---
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 He reported that he started having productive cough with greenish sputum, noticed shortness of breath while resting, was not able to sleep in a reclined position and also 2 weeks ago he had chest pain. He went to the PCP and was recommended to go to the ED in the ED imaging revealed pneumonia and 8 mm pulmonary nodule in the right lower lobe. On the questioning, patient also reports that after his small bowel resection he experienced frequent diarrhea, every day, more than 10 times a day and reports feeling general weakness. He also reports he was prescribed potassium pills, but was not able to pick them up yet. He is shortness of breath and chest tightness continued and he came to the ED on 11/29/2024. ED course: Blood pressure 143/95, heart rate 129, irregular, saturation 90% on room air. Labs showed hemoglobin of 11.6, hematocrit 35.8, D-dimer 1240, ABG showed pH of 7.37, pCO2 38, pO2 78 L. Sodium 145, potassium 2.7, chloride 109, anion gap 13, creatinine 1.8, EGFR 44, magnesium less than 0.5, total bilirubin 2.8. Initial troponin I is 0.0 73, BNP 1068, LDL 46, HDL 33, cholesterol 97, TSH 1.08. UA was negative for signs of UTI. Chest x-ray showed mild to moderate enlargement of cardiac contour, no pneumonia or pulmonary edema. In the ED patient was started on diltiazem drip, received methylprednisolone 125 mg, pain medication, potassium tablet, magnesium IV. Patient denies recent immobilization, history of cancer. Patient's java programmer analyst is Dr. Terry and patient is reporting that he's getting pacemaker in 30 days , waiting for the appointment with exchange specialist. Patient is going to be admitted for A-fib with RVR rate control and management. 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 Denies smoking, drinks alcohol 1 can of beer in 6 months, denies recreational substances. Allergies: Denies allergies Surgeries: Small bowel resection in May 2024. Medications: Eliquis 5 mg (prescribed twice daily, takes only once daily), carvedilol 6.25 twice daily, valsartan 80 mg. Review of Systems Review of Systems Systems Reviewed: All systems reviewed, normal except as documented Past Medical History Past Medical History CARDIAC: Positive Cardiac Disorders, Atrial Fibrillation and Hypertension GASTROINTESTINAL: Positive Obstructive Bowel ENDOCRINE: Positive Diabetes Mellitus Type 2 Surgical History SURGICAL: Positive Abdominal Surgery (BOWEL OBSTRUCTION) Social History SMOKING STATUS: Former smoker SUBSTANCE USE: does not use ALCOHOL: Never Exam Vital Signs Temp Pulse Resp BP Pulse Ox O2 Del Method O2 Flow Rate 100.2 F 96 19 111/86 H 94 L Nasal Cannula 2 11/29/24 19:31 11/29/24 21:00 11/29/24 21:00 11/29/24 21:00 11/29/24 21:00 11/29/24 21:00 11/29/24 21:00 Narrative Exam Physical Exam General: Awake and in no acute distress. Conversational and non-toxic appearing. HEENT: Normocephalic, atraumatic, mucous membranes moist. Heart: Irregular rate and rhythm, no murmurs. Lungs: Clear to auscultation with no wheezing or crackles. Abdomen: Soft, nondistended, nontender, positive bowel sounds. ?No guarding or rebound tenderness. Midline laparotomy scar. Neurologic: Alert and oriented x3, no gross neurological deficit, and patient able to move all 4 extremities. Extremities: No edema. Skin: No rash or ecchymoses. Results: Labs 11/29/24 18:18 11/29/24 18:18 Labs: Short CBC 11/29/24 Range/Units 18:18 WBC 9.5 (3.8-10.6) Thou/mm3 Hgb 11.6 L (13.5-16.0) g/dL Hct 35.8 L (41.0-53.0) % Plt Count 240 D (140-440) Thou/mm3 BMP 11/29/24 18:18 Sodium 145 Potassium 2.7 L* Chloride 109 H Carbon Dioxide 22.9 BUN 16 Creatinine 1.8 H Glucose 101 Calcium 7.8 L Cardiac Enzymes 11/29/24 Range/Units 18:18 Troponin I 0.073 H* (0.0-0.045) ng/mL Liver Function 11/29/24 Range/Units 18:18 Total Bilirubin 2.8 H (0.3-1.2) mg/dL AST 16 (0-34) U/L ALT 22 (10-49) U/L Alkaline Phosphatase 58 (46-116) U/L Albumin 4.1 (3.5-5.0) gm/dL Urine 11/29/24 Range/Units 18:16 Urine Color Lt-Yellow (Lt Yel-Yel) Urine Clarity Clear (Clear/Hazy) Urine pH 6.5 (5.0-7.0) Ur Specific [place] 1.007 (1.001-1.035) Urine Protein Trace (Neg - Trace) Urine Glucose (UA) Negative (Negative) ABG Interpretation ABG results: 11/29/24 20:14 ABG pH 7.37 ABG pCO2 38 ABG pO2 78 L ABG HCO3 22 ABG O2 Saturation 93 ABG Base Excess -3 Quality Measures Quality Measures VTE prophylaxis Medications Home Medications and Allergies Home Medications ?Medication ?Instructions ?Recorded ?Confirmed ?Type amiodarone 100 mg tablet 100 mg PO BID Afib 11/29/24 11/29/24 History apixaban 5 mg tablet (Eliquis) 5 mg PO Q12H blood thinner 11/29/24 11/29/24 History carvedilol 6.25 mg tablet 6.25 mg PO BID 11/29/24 11/29/24 History dapagliflozin propanediol 10 mg 10 mg PO DAILY diabetes 11/29/24 11/29/24 History tablet (Farxiga) famotidine 20 mg tablet 20 mg PO QDAY gerd 11/29/24 11/29/24 History loperamide 2 mg capsule 2 mg PO QDAY diahrrea 11/29/24 11/29/24 History losartan 50 mg tablet 50 mg PO QDAY hypertension 11/29/24 11/29/24 History sacubitril 24 mg-valsartan 26 mg 1 tab PO QDAY chf 11/29/24 11/29/24 History tablet (Entresto) Allergies Allergy/AdvReac Type Severity Reaction Status Date / Time No Known Allergies Allergy Verified 11/29/24 18:03 Visit Medications Acetaminophen (Acetaminophen 325 Mg Tablet) 650 mg PO Q6H PRN PRN Reason: Fever >100.3 or pain 1-3 Stop: 12/29/24 20:49 Apixaban (Apixaban 2.5 Mg Tablet) 5 mg PO BID [facility]ZETTE Stop: 12/29/24 20:59 Last Admin: 11/29/24 21:32 Dose: 5 mg Diltiazem HCl (Diltiazem In D5w 125 Mg) 125 mg in 125 mls @ 5 mls/hr IV .Q24H ONE; Protocol Stop: 11/30/24 18:09 Last Admin: 11/29/24 18:56 Dose: 5 mg/hr, 5 mls/hr Magnesium Sulfate (Magnesium Sulfate Ivpb) 4 gm in 50 mls @ 12.5 mls/hr IV X1 ONE Stop: 11/29/24 22:57 Last Admin: 11/29/24 19:24 Dose: 12.5 mls/hr Magnesium Sulfate (Magnesium Sulfate Ivpb) 4 gm in 50 mls @ 12.5 mls/hr IV X1 ONE Stop: 11/30/24 02:59 Potassium Chloride (Kcl Ivpb) 10 meq in 100 mls @ 100 mls/hr IV Q1H [facility]ZETTE Stop: 11/30/24 00:59 Last Admin: 11/29/24 21:34 Dose: 100 mls/hr Levalbuterol HCl (Levalbuterol Rt 0.63 Mg/3 Ml Nebu) 0.63 mg INH Q4HRRT PRN PRN Reason: wheezing Stop: 12/29/24 22:59 Ondansetron HCl (Ondansetron Inj 2 Mg/Ml Inj 2 Ml) 4 mg IV Q6H PRN; Protocol PRN Reason: NAUSEA OR VOMITING Stop: 12/29/24 20:49 Sennosides (Senna Tablet) 1 tab PO QDAY PRN; Protocol PRN Reason: constipation Stop: 12/29/24 20:49 Discontinued Medications Diltiazem HCl (Diltiazem Inj 5 Mg/Ml Vial 5 Ml) 20 mg IV X1 ONE Stop: 11/29/24 18:11 Last Admin: 11/29/24 18:22 Dose: 20 mg Ketorolac Tromethamine (Ketorolac Inj 30 Mg/Ml Vial) 30 mg IVP X1 ONE Stop: 11/29/24 18:43 Last Admin: 11/29/24 19:22 Dose: 30 mg Methylprednisolone Sodium Succinate (Methylprednisolone Sod Succ 62.5 Mg/Ml 2ml Vial) 125 mg IVP X1 ONE Stop: 11/29/24 18:11 Last Admin: 11/29/24 18:21 Dose: 125 mg Morphine Sulfate (Morphine Sulf Inj 10 Mg/Ml Vial) 4 mg IVP X1 ONE Stop: 11/29/24 18:43 Last Admin: 11/29/24 19:24 Dose: 4 mg Potassium Chloride (Potassium Chloride 10% 20 Meq/15 Ml Udc) 40 meq PO X1 ONE Stop: 11/29/24 18:59 Last Admin: 11/29/24 19:24 Dose: 40 meq Assessment & Plan Plan The patient is a 54-year-old male with a previous medical history of hypertension, A-fib on Eliquis, 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 Patient is going to be admitted for A-fib with RVR rate control and management. #Acute hypoxic respiratory failure #Afib with RVR Patient has a history of Afib with RVR, HR at admission was >120. Blood pressure was stable. Well's score 1.5, low suspicion for PE. ASCVD risk stratification: 5.1% Risk of cardiovascular event (coronary or stroke or non-fatal UT or stroke) in next 10 years. 3.6% 10-year cardiovascular risk if risk factors were optimal Moderate-intensity statin recommended because of 10-year risk between 5-7.5%. Has bled score: 4 points Risk was 8.9% in one validation study (Lip 2011) and 8.70 bleeds per 100 patient-years in another validation study (Pisters 2010). [id number] score is 3. Plan: ?Continue diltiazem drip at 5 mg/h, transition to diltiazem PO after rate control ? Eliquis 5 mg twice daily ? Echo ordered ? Trend troponins until they peak #History of hypertension Plan: ? Home blood pressure medications on hold, patient is on diltiazem drip #Acute kidney injury #Hypokalemia #Hypomagnesemia Most likely due to the losses of fluid, nutrients and electrolytes with chronic diarrhea. Plan: - replete electrolytes as necessary - daily CMP - avoid nephrotoxic agents #Fatty liver disease #Elevated bilirubin Patient denies abdominal pain. Liver US showed liver with fatty infiltration. Plan: - Monitor CMP - follow-up outpatient Health maintenance: FEN: cardiac DVT prophylaxis: Eliquis 5 mg BID GI prophylaxis: none Dispo: telemetry CODE STATUS: Full code Plan of care discussed with attending Dr. Sharif, PGY-[address] Rangel. Allie Olsen MD, PGY 1. Attending Provider Attestation/Addendum 54-year-old male patient with hypertension, atrial fibrillation was admitted because of shortness of breath, chest tightness and hypoxia found to be in rapid atrial fibrillation. The patient has low potassium and low magnesium levels.The patient was seen in the ER on Cardizem drip. Chest x-ray showed cardiac enlargement with no pulmonary congestion. Patient stated that his java programmer analyst is Dr. Terry. Patient will continue on rate control. He is on oral anticoagulation already. Discussed with housestaff
[2024-11-30] VITALS (16 sets, daily range): BP systolic 85–127; BP diastolic 63–90; PULSE 72–122; RESP 14–21; TEMP 35.6–36.4; O2SAT 93–100; BMI 33.3
[2024-11-30] MEDS: POTASSIUM CHL 10 mEq IVPB 10 MEQ/100 ML BAG 100 MEQ IV ×5 (01:01→18:42)
[2024-11-30 03:19] LABS: Troponin I 0.046 ng/mL (0.0-0.045)
[2024-11-30] MEDS: LEVALBUTEROL RT 0.63 MG/3 ML NEBU INH ×2 (04:17→15:21)
[2024-11-30] MEDS: DILTIAZEM 30 MG TABLET PO ×4 (05:36→20:32)
[2024-11-30 06:07] LABS: Basophils % (Auto) 0 % (0-2.5); Eosinophils % (Auto) 0 % (0-10); Hematocrit 34.7 % (41.0-53.0); Hemoglobin 11.2 g/dL (13.5-16.0); Immature Granulocytes % (Auto) 0 % (0-0); Immature Granulocytes Auto 0.02 Thou/mm3 (0.00-0.00); Lymphocytes # (Auto) 0.5 Thou/mm3 (1.0-4.8); Lymphocytes % (Auto) 11 % (10-50); Mean Corpuscular HGB Conc 32.3 g/dl (31.0-37.0); Mean Corpuscular Hemoglobin 29.3 pg (25.0-35.0); Mean Corpuscular Volume 91 fL (80-100); Monocytes # (Auto) 0.1 Thou/mm3 (0.0-0.8); Monocytes % (Auto) 2 % (0-12); Neutrophils # (Auto) 4.3 Thou/mm3 (1.8-7.7); Neutrophils % (Auto) 86 % (37-80); Nucleated Red Blood Cell % 0 /100 WBC (0); Platelet Count 230 Thou/mm3 (140-440); RDW Standard Deviation 53.3 fL (35.1-43.9); Red Blood Count 3.82 Miln/mm3 (4.50-5.90)
[2024-11-30 06:20] LABS: INR 1.3 (0.9-1.3); Partial Thromboplastin Time 30.6 Seconds (22.0-36.0)
[2024-11-30 06:32] LABS: Alanine Aminotransferase 22 U/L (10-49); Albumin/Globulin Ratio 1.5 (1.2-2.2); Alkaline Phosphatase 58 U/L (46-116); Anion Gap 12 (7-16); Aspartate Amino Transferase 18 U/L (0-34); BUN/Creatinine Ratio 9 Ratio (12-20); Bilirubin,Total 2.1 mg/dL (0.3-1.2); Blood Urea Nitrogen 15 mg/dL (9-23); Calcium 7.5 mg/dL (8.3-10.6); Calcium (Corrected) 7.5 mg/dL (8.5-10.1); Carbon Dioxide 23.1 mMol/L (20.0-31.0); Chloride 107 mMol/L (98-107); Creatinine (Component) 1.6 mg/dL (0.6-1.3); Estimated Creatinine Clearance 65.1 mL/min (>60); Globulin 2.6 gm/dL (2.3-3.5); Glucose 149 mg/dL (74-106); Magnesium 1.9 mg/dL (1.6-2.6); Osmolality,Calculated 286 (275-295); Phosphorous 2.4 mg/dL (2.4-5.1); Potassium 2.9 mMol/L (3.4-5.1); Sodium 142 mMol/L (136-145); Total Protein 6.6 gm/dL (5.7-8.2); eGFR 51 See Note
[2024-11-30] MEDS: APIXABAN 2.5 MG TABLET 5 MG PO ×2 (08:55→20:32)
--- NOTE | 2024-11-30 08:55 | PC.NURSE ---
Dr. Hughes at bedside and verbalizes already aware of results and states we will replace electrolytes.
--- NOTE | 2024-11-30 09:35 | PC.SS ---
SS follow up note; Echo done, pending results. Continue diltiazem drip at 5 mg/h, transition to diltiazem PO after rate control. Patient will return back home when medically cleared.
--- NOTE | 2024-11-30 10:21 | PC.SS ---
Patient Deirdre Young is a 54 Year old male admitted for AFIB With RVR. SS met with patient at bedside to discuss discharge planning and review demographic information. Patient appeared to be alert and oriented to place, situation and time. Patient reports he lives at home with his sister, Zney Burks who he reports is his surrogate decision maker [phone]. Patient reports he does not utilize any source of DME to assist with ambulation, Patient is able to complete all ADL's independently, patient reports his Choice of pharmacy is [facility] and his PCP is Tamiko Means at the [facility]. At time of discharge patient wishes to return home. No further needs at this time. Next of Kin: SisterZeny Discharge Plan: Home
[2024-11-30 11:21] LABS: Troponin I 0.034 ng/mL (0.0-0.045)
[2024-11-30] MEDS: CALCIUM CARBONATE 600 MG TABLET PO (11:48)
--- NOTE | 2024-11-30 13:53 | ESPR_ITS ---
<Statement entered by Marcello Walsh MD - 12/02/24 07:36> Senior Resident Attestation: I supervised/discussed management plan with international trade specialist physician Dr. Heller, and was involved in the care of this patient. I personally saw and examined the patient and discussed the assessment and plan with the entire medicine team, including my attending. I agree with the assessment and plan as documented. Patient's care was discussed with attending physician, Dr. Medrano. Marcello Walsh MD PGY-2. Documentation for date of: 11/30/24 Subjective Subjective Interval history: Patient is an overnight admit. Patient was found to be in A-fib with RVR and was initially started on diltiazem drip however due to hypotension during the drip administration patient was transition to p.o. diltiazem. patient is seen and examined at bedside this morning patient denies any shortness of breath, chest pain or palpitations. Patient states that he is feeling better than when he first came to the ED however he continues to have frequent watery diarrhea for months because of his small bowel resection. Patient states that he was prescribed potassium p.o. outpatient by his deburrer machine Dr. Terry however he has not been able to chart picker his prescription. Patient states that he takes valsartan and diltiazem and Eliquis at home and was not prescribed Entresto however his insurance did not cover it so he was never able to chart picker the medication. Patient has no other complaints. Exam Vital Signs Temp Pulse Resp BP Pulse Ox O2 Del Method O2 Flow Rate 96.8 F 74 20 120/83 96 Room Air 2 11/30/24 12:00 11/30/24 13:38 11/30/24 13:38 11/30/24 12:00 11/30/24 13:38 11/30/24 12:00 11/30/24 04:19 Narrative Exam GENERAL: well appearing, well nourished, A&Ox3 . Awake not in acute distress, saturating on room air NEURO: no focal neurological deficits noted HEENT: Atraumatic, Normocephalic. mucous membranes moist. Eyes open, symmetrical, & clear HEART: Normal Heart Sounds LUNGS: Bilateral wheezing heard on auscultation ABDOMEN: soft, non-distended, non-tender, bowel sounds heard, no guarding or rebound tenderness SKIN: No Rash or ecchymoses EXTREMITIES: trace pitting edema, no tenderness, able to move all 4 extremities, pedal pulses palpated Objective Labs 11/30/24 05:39 11/30/24 13:36 Labs: Laboratory Results - last 24 hr 11/29/24 11/29/24 11/29/24 18:16 18:18 20:14 WBC 9.5 RBC 3.98 L Hgb 11.6 L Hct 35.8 L MCV 90 MCH 29.1 MCHC 32.4 RDW Std Deviation 52.4 H Plt Count 240 D Neut % (Auto) 67 Lymph % (Auto) 27 [place] % (Auto) 5 Eos % (Auto) 0 Baso % (Auto) 1 Neut # (Auto) 6.3 Lymph # (Auto) 2.6 [place] # (Auto) 0.5 Eos # (Auto) 0.0 Baso # (Auto) 0.1 Immature Gran # (Auto) 0.03 H Absolute Nucleated RBC 0.00 Immature Gran % 0 Nucleated RBC % 0 PT INR APTT D-Dimer 1240 H Puncture Site Right Radial ABG pH 7.37 ABG pCO2 38 ABG pO2 78 L ABG HCO3 22 ABG O2 Saturation 93 ABG Base Excess -3 Oxygen Liter Flow 2 FiO2 21 Sodium 145 Potassium 2.7 L* Chloride 109 H Carbon Dioxide 22.9 Anion Gap 13 BUN 16 Creatinine 1.8 H Estim Creat Clear Calc 57.9 L eGFR 44 L BUN/Creatinine Ratio 9 L Glucose 101 Calculated Osmolality 289 Calcium 7.8 L Corrected Calcium 7.8 L Phosphorus Magnesium < 0.5 L* Total Bilirubin 2.8 H AST 16 ALT 22 Alkaline Phosphatase 58 Troponin I 0.073 H* B-Natriuretic Peptide 1068 H* Total Protein 6.9 Albumin 4.1 Globulin 2.8 Albumin/Globulin Ratio 1.5 Triglycerides 91 Cholesterol 97 L LDL Cholesterol, Calc 46 HDL Cholesterol 33 L Cholesterol/HDL Ratio 2.9 L TSH 1.08 Ur Collection Type Clean Catch Urine Color Lt-Yellow Urine Clarity Clear Urine pH 6.5 Ur Specific [place] 1.007 Urine Protein Trace Urine Glucose (UA) Negative Urine Ketones Negative Urine Blood Negative Urine Nitrite Negative Urine Bilirubin Negative Urine Urobilinogen (Auto) Negative Ur Leukocyte Esterase Negative Urine RBC 1 Urine WBC 1 Ur Squamous Epith Cells 0 Urine Bacteria None Ur Culture Indicated? Not Indicated 11/30/24 11/30/24 11/30/24 02:34 05:39 10:17 WBC 5.0 D RBC 3.82 L Hgb 11.2 L Hct 34.7 L MCV 91 MCH 29.3 MCHC 32.3 RDW Std Deviation 53.3 H Plt Count 230 Neut % (Auto) 86 H Lymph % (Auto) 11 [place] % (Auto) 2 Eos % (Auto) 0 Baso % (Auto) 0 Neut # (Auto) 4.3 Lymph # (Auto) 0.5 L [place] # (Auto) 0.1 Eos # (Auto) 0.0 Baso # (Auto) 0.0 Immature Gran # (Auto) 0.02 H Absolute Nucleated RBC 0.00 Immature Gran % 0 Nucleated RBC % 0 PT 14.0 H INR 1.3 APTT 30.6 D-Dimer Puncture Site ABG pH ABG pCO2 ABG pO2 ABG HCO3 ABG O2 Saturation ABG Base Excess Oxygen Liter Flow FiO2 Sodium 142 Potassium 2.9 L Chloride 107 Carbon Dioxide 23.1 Anion Gap 12 BUN 15 Creatinine 1.6 H Estim Creat Clear Calc 65.1 eGFR 51 L BUN/Creatinine Ratio 9 L Glucose 149 H Calculated Osmolality 286 Calcium 7.5 L Corrected Calcium 7.5 L Phosphorus 2.4 Magnesium 1.9 Total Bilirubin 2.1 H D AST 18 ALT 22 Alkaline Phosphatase 58 Troponin I 0.046 H* 0.034 B-Natriuretic Peptide Total Protein 6.6 Albumin 4.0 Globulin 2.6 Albumin/Globulin Ratio 1.5 Triglycerides Cholesterol LDL Cholesterol, Calc HDL Cholesterol Cholesterol/HDL Ratio TSH Ur Collection Type Urine Color Urine Clarity Urine pH Ur Specific [place] Urine Protein Urine Glucose (UA) Urine Ketones Urine Blood Urine Nitrite Urine Bilirubin Urine Urobilinogen (Auto) Ur Leukocyte Esterase Urine RBC Urine WBC Ur Squamous Epith Cells Urine Bacteria Ur Culture Indicated? ABG Interpretation ABG results: 11/29/24 20:14 ABG pH 7.37 ABG pCO2 38 ABG pO2 78 L ABG HCO3 22 ABG O2 Saturation 93 ABG Base Excess -3 Quality Measures Quality Measures VTE prophylaxis Assessment & Plan Assessment Current Active Medications: Generic Name Dose Route Start Last Admin Trade Name Freq PRN Reason Stop Dose Admin Acetaminophen 650 mg 11/29/24 20:50 Acetaminophen 325 Mg Tablet PO 12/29/24 20:49 Q6H PRN Fever >100.3 or pain 1-3 Apixaban 5 mg 11/29/24 21:00 11/30/24 08:55 Apixaban 2.5 Mg Tablet PO 12/29/24 20:59 5 mg BID LIZETTE Administration Diltiazem HCl 30 mg 11/30/24 06:00 11/30/24 11:48 Diltiazem 30 Mg Tablet PO 12/30/24 05:59 30 mg QID LIZETTE Administration Levalbuterol HCl 0.63 mg 11/29/24 20:50 11/30/24 04:17 Levalbuterol Rt 0.63 Mg/3 Ml Nebu INH 12/29/24 22:59 0.63 mg Q4HRRT PRN Administration wheezing Ondansetron HCl 4 mg 11/29/24 20:50 Ondansetron Inj 2 Mg/Ml Inj 2 Ml IV 12/29/24 20:49 Q6H PRN NAUSEA OR VOMITING Protocol Sennosides 1 tab 11/29/24 20:50 Senna Tablet PO 12/29/24 20:49 QDAY PRN constipation Protocol Plan 54-year-old male with a previous medical history of hypertension, A-fib on Eliquis, 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 Patient is going to be admitted for A-fib with RVR rate control and management. #Hypokalemia #Hypomagnesemia #Hypocalcemia -On admission pt K+ was 2.6, Mg < 0.5 and calcium 7.5, likely secondary to GI loses as pt has chronic loose stool s/p small bowel resection - 120 meq of K+ is repleted, 12 g Mg repleted with calcium carbonate -Will repeat labs at 7pm and repleted as needed #Acute hypoxic respiratory failure 2/2 #CHF exacerbation #Afib with RVR -Patient has a history of Afib with RVR, HR at admission was >120. Blood pressure was stable. -Well's score 1.5, low suspicion for PE. -ASCVD risk stratification:5.1% Risk of cardiovascular event (coronary or stroke or non-fatal UT or stroke) in next 10 years. -3.6% 10-year cardiovascular risk if risk factors were optimal -Moderate-intensity statin recommended because of 10-year risk between 5-7.5%. -[id number] score is 3, HAS-BLED 2 Plan: -Transitioned diltiazem drip at 5 mg/h to diltiazem PO -Resumed home Eliquis 5 mg twice daily -Echo ordered #Acute kidney injury -On admission Cr 1.8, baseline 1.2. Most likely dehydration due to the GI losses, nutrients and electrolytes with chronic diarrhea. 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 Liver US showed liver with fatty infiltration. -likely secondary to chronic amiodarone use for a-fib, pt states his deburrer machine switched him from amiodarone to diltiazam Plan: -Monitor CMP -follow-up outpatient Health Maintenance Disposition: telemetry DVT Prophylaxis: pt is on eliquis BID GI Prophylaxis: not indicated Diet: Cardiac Diet Lines: Peripheral lines Assessment and plan discussed with my senior resident Dr. Walsh & attending physician Dr. Marcela Heller (PGY-1)- Internal medicine resident Attending Provider Attestation/Addendum I attest that I was physically present for the evaluation, physical examination, lab and imaging review of the patient with the residents. I discussed the case with the residents and agree with the findings and plans of care as documented above. 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 Patient was initially started on diltiazem drip but his blood pressure started decreasing.? The drip was stopped and transition to oral diltiazem.? Patient has been having multiple episodes of diarrhea after his bowel resection.? At bedside, he states he is feeling better.? This morning he is noted to have potassium of 2.9, corrected calcium 7.5, repleted accordingly.? BUN/creatinine improved from 16/1.8-15/1.6.? Magnesium level improved from 0.5- 1.9.? Troponin level peaked.? Patient continues to have bilateral wheezing on examination, he continues to feel mild shortness of breath.? We will start one- time dose of Lasix 40 IV.? We will continue with Eliquis.? Will continue to monitor his electrolytes closely.? Patient is saturating well on room air. Samanta Medrano MD
[2024-11-30 14:08] LABS: Magnesium 1.7 mg/dL (1.6-2.6); Potassium 2.8 mMol/L (3.4-5.1)
--- NOTE | 2024-11-30 14:48 | PC.NURSE ---
Dr. Hughes aware of potassium and mag level repeat results. aware and states we will enter replacement orders now, go ahead and give lasix.
[2024-11-30] MEDS: FUROSEMIDE INJ 10 MG/ML 4ML VIAL 40 MG IVP (15:07)
[2024-11-30] MEDS: Magnesium Sulfate 4 GM Ivpb 4 GM/50 ML BAG IV (15:08)
--- NOTE | 2024-11-30 15:20 | PC.NURSE ---
Dr. Hughes aware pt. refused Oral Potassium pills. states I will enter orders for liquid dose.
[2024-11-30 19:44] LABS: Magnesium 2.4 mg/dL (1.6-2.6); Potassium 2.9 mMol/L (3.4-5.1)
[2024-11-30] MEDS: POTASSIUM CHLORIDE 10% 20 MEQ/15 ML UDC 40 MEQ PO (20:32)
[2024-11-30] MEDS: HYDROcodone/APAP 5/325 TABLET 1 TAB PO (20:33)
--- NOTE | 2024-11-30 22:29 | ECHO_ITS ---
Transthoracic Echo Report Ht (in): 70 Wt (lb): 260 Exam Location: [facility] Status: Inpatient Analytics Associate: JAZMIN Shirley^^^^ Indications: Procedure Performed: BP: 128 / 78 HR: 81 Rhythm: Atrial fibrillation Technical Quality: Fair MEASUREMENT (Male / Female) Normal Values S 2D ECHO LV Diastolic Diameter PLAX 6.4 cm 4.2 - 5.9 / 3.9 - 5.3 cm LV Systolic Diameter PLAX 5.8 cm IVS Diastolic Thickness 1.1 cm 0.6 - 1.0 / 0.6 - 0.9 cm LVPW Diastolic Thickness 1.3 cm 0.6 - 1.0 / 0.6 - 0.9 cm LV Relative Wall Thickness 0.4 LVOT Diameter 2.0 cm Aortic Root Diameter 4.2 cm LA Systolic Diameter LX 4.9 cm 3.0 - 4.0 / 2.7 - 3.8 cm LV Ejection Fraction MOD BP 27.4 % >= 55 % LV Cardiac Index MOD BP 2107.1 cm?/min?m? LV Ejection Fraction MOD 4C 27.3 % LV Cardiac Index MOD 4C 2732.7 cm?/min?m? LV Ejection Fraction 4C AL 26.6 % LV Cardiac Index 4C AL 2837.1 cm?/min?m? LV Ejection Fraction MOD 2C 23.0 % LV Cardiac Index MOD 2C 1317.0 cm?/min?m? LV Ejection Fraction 2C AL 24.7 % LV Cardiac Index 2C AL 1432.9 cm?/min?m? LA Volume Index 70.0 cm?/m? 16 - 28 cm?/m? Ascending Aorta Diameter 3.4 cm DOPPLER AV Peak Velocity 126.3 cm/s AV Peak Gradient 6.4 mmHg AV Mean Gradient 4.5 mmHg AV Velocity Time Integral 25.3 cm AI Peak Velocity 318.0 cm/s AI Peak Gradient 40.4 mmHg AI Pressure Half Time 665.0 ms LVOT Peak Velocity 70.0 cm/s LVOT Peak Gradient 2.0 mmHg LVOT Velocity Time Integral 16.1 cm LVOT Cardiac Index 1660.1 cm?/min?m? AV Area Cont Eq vti 2.0 cm? AV Area Cont Eq pk 1.7 cm? MV Peak Velocity 139.0 cm/s MV Peak Gradient 7.7 mmHg MV Mean Velocity 99.3 cm/s MV Mean Gradient 4.5 mmHg MV Area PHT 5.4 cm? MR Peak Velocity 440.0 cm/s MR Peak Gradient 77.4 mmHg Mitral E Point Velocity 130.0 cm/s Mitral A Point Velocity 47.5 cm/s Mitral E to A Ratio 2.7 LV E' Lateral Velocity 13.5 cm/s Mitral E to LV E' Lateral Ratio 9.6 LV E' Septal Velocity 7.7 cm/s Mitral E to LV E' Septal Ratio 16.8 TR Peak Velocity 311.8 cm/s TR Peak Gradient 38.9 mmHg PV Peak Velocity 78.9 cm/s PV Peak Gradient 2.5 mmHg RVOT Peak Velocity 54.7 cm/s FINDING S Left Ventricle There are findings consistent with dilated cardiomyopathy. The left ventricular ejection fraction is severely decreased, estimated at 20-25%. There is grade III diastolic dysfunction of the left ventricle (restrictive filling pattern). The left ventricular cavity size is moderately increased. Right Ventricle The right ventricle is normal in size and systolic function. The estimated right ventricular systolic pressure, 47 mmHg. Left Atrium Severely increased left atrial volume 70 mL/m?. Right Atrium The right atrial cavity size is severely increased. Atrial Septum The interatrial septum appears normal with no evidence of a shunt. Aorta The aorta is normal by two-dimensional, color flow and Doppler interrogation. Mitral Valve Moderate mitral regurgitation. Moderate mitral annular calcification. Aortic Valve Aortic valve sclerosis. Mild aortic valve regurgitation. Tricuspid Valve There is mild to moderate tricuspid valve regurgitation. Pulmonic Valve Mild pulmonic valve regurgitation. Vessels The pulmonary artery appears normal. Dilated inferior vena cava. Pericardium The pericardium is normal by two-dimensional imaging. There is no significant pericardial effusion. CONCLUSION S Indication: Atrial fibrillation with RVR Dilated cardiomyopathy Mildly dilated LV with severely reduced ejection fraction of around 25 to 30%. Mild LVH Diastolic dysfunction present but cannot be graded because of the [id number] Normal RV size and function. Estimated RVSP moderately elevated at 47 mmHg Severe RA dilatation as well as massive LA dilatation. Moderate MR, mild MAC, mild AI and moderate TR. Dilated IVC Rogre Jon (Electronically Signed) Final Date: 30 November 2024 20:57
[2024-12-01] VITALS (17 sets, daily range): BP systolic 94–126; BP diastolic 72–92; PULSE 87–117; RESP 17–97; TEMP 36–36.4; O2SAT 94–98; BMI 33.0
[2024-12-01 00:59] LABS: Potassium 3.4 mMol/L (3.4-5.1)
[2024-12-01] MEDS: DILTIAZEM 30 MG TABLET PO ×4 (05:12→20:42)
[2024-12-01] MEDS: LEVALBUTEROL RT 0.63 MG/3 ML NEBU INH ×2 (05:38→10:12)
[2024-12-01 05:39] LABS: Basophils % (Auto) 0 % (0-2.5); Eosinophils % (Auto) 0 % (0-10); Hematocrit 35.1 % (41.0-53.0); Hemoglobin 11.2 g/dL (13.5-16.0); Immature Granulocytes % (Auto) 0 % (0-0); Immature Granulocytes Auto 0.03 Thou/mm3 (0.00-0.00); Lymphocytes # (Auto) 1.1 Thou/mm3 (1.0-4.8); Lymphocytes % (Auto) 12 % (10-50); Mean Corpuscular HGB Conc 31.9 g/dl (31.0-37.0); Mean Corpuscular Hemoglobin 28.9 pg (25.0-35.0); Mean Corpuscular Volume 91 fL (80-100); Monocytes # (Auto) 0.8 Thou/mm3 (0.0-0.8); Monocytes % (Auto) 10 % (0-12); Neutrophils # (Auto) 6.8 Thou/mm3 (1.8-7.7); Neutrophils % (Auto) 77 % (37-80); Nucleated Red Blood Cell % 0 /100 WBC (0); Platelet Count 263 Thou/mm3 (140-440); RDW Standard Deviation 54.4 fL (35.1-43.9); Red Blood Count 3.88 Miln/mm3 (4.50-5.90); White Blood Count 8.8 Thou/mm3 (3.8-10.6)
[2024-12-01 06:31] LABS: Alanine Aminotransferase 18 U/L (10-49); Albumin, Serum 3.8 gm/dL (3.5-5.0); Albumin/Globulin Ratio 1.6 (1.2-2.2); Alkaline Phosphatase 52 U/L (46-116); Anion Gap 9 (7-16); Aspartate Amino Transferase 13 U/L (0-34); BUN/Creatinine Ratio 11 Ratio (12-20); Bilirubin,Total 1.3 mg/dL (0.3-1.2); Blood Urea Nitrogen 18 mg/dL (9-23); Calcium 7.5 mg/dL (8.3-10.6); Calcium (Corrected) 7.7 mg/dL (8.5-10.1); Carbon Dioxide 27.2 mMol/L (20.0-31.0); Chloride 107 mMol/L (98-107); Creatinine (Component) 1.6 mg/dL (0.6-1.3); Estimated Creatinine Clearance 63.2 mL/min (>60); Globulin 2.4 gm/dL (2.3-3.5); Glucose 99 mg/dL (74-106); Magnesium 2.1 mg/dL (1.6-2.6); Osmolality,Calculated 286 (275-295); Phosphorous 4.4 mg/dL (2.4-5.1); Potassium 3.5 mMol/L (3.4-5.1); Sodium 143 mMol/L (136-145); Total Protein 6.2 gm/dL (5.7-8.2); eGFR 51 See Note
[2024-12-01] MEDS: HYDROcodone/APAP 5/325 TABLET 1 TAB PO (07:00)
--- NOTE | 2024-12-01 07:38 | PC.NURSE ---
Dr. Heller aware pt. complaining of back pain 06/04. When pt. asked what home regimen is for pain, pt. states I was taking tylenol and motrin and my doctor took me off of that. Pt. was given PRN norco dose, pt. states that did not help last night, but agrees to try it. Dr. Heller aware and states plan to order lidocaine patch and agrees to come see pt.
[2024-12-01] MEDS: CALCIUM CARBONATE 600 MG TABLET PO ×2 (09:01→14:24)
[2024-12-01] MEDS: POTASSIUM CHLORIDE 10% 20 MEQ/15 ML UDC 40 MEQ GT (09:01)
[2024-12-01] MEDS: APIXABAN 2.5 MG TABLET 5 MG PO ×2 (09:01→20:41)
--- NOTE | 2024-12-01 09:24 | PC.SS ---
SS follow up note; Potassium being monitored. Possible discharge today.
--- NOTE | 2024-12-01 10:56 | ESPR_ITS ---
<Statement entered by Shamar Mendiola MD - 12/01/24 18:21> Overnight patient went into Afib. We restarted metoprolol and GDMT for HFref. Will monitor BP over night and likely DC tomorrow should patient tolerate medications. Case discussed with team. Shamar Mendiola MD PGY3. Documentation for date of: 12/01/24 Subjective Subjective Interval history: Overnight team reported pt complained of backpain and was given norco over night. Pt was also found to be in Afib with RVR with HR ranging 150-160's, Overnight team gave additional diltiazam dose. Pt is seen and examined at bedside this morning. Pt denies SOB, chest pain or palpitation or dizzinesses. Pt's echo results are discussed and informed that pt would benefit from GDMT, which he states he was on it however he has slowly stopped taking them over time because he believes in homeopathetic medicines and rather seek treatment with HERBS and TEAS. I extensively discussed with pt importance of GDMT considering his current echo results and pt has agreed to restart on his GDMT. vitals this mornign are stable with BP 126/90, HR 107, significant labs include K+ 3.5 (40meq is renewed), and creatinine is 1.6, Ca 7.7 (calcium carbonate is scheduled). Pt is started on GDMT and fluid restrictions to 1500. will continue to monitor pt for additional day. Exam Vital Signs Temp Pulse Resp BP Pulse Ox O2 Del Method O2 Flow Rate 96.9 F 100 20 126/90 H 98 Room Air 1 12/01/24 07:55 12/01/24 10:12 12/01/24 10:12 12/01/24 07:55 12/01/24 10:12 12/01/24 07:55 12/01/24 10:12 Narrative Exam GENERAL: well appearing, pleasant conversation, well nourished, A&Ox3 . Awake not in acute distress, saturating on room air NEURO: no focal neurological deficits noted HEENT: Atraumatic, Normocephalic. mucous membranes moist. Eyes open, symmetrical, & clear HEART: Normal Heart Sounds LUNGS: Bilateral wheezing heard on auscultation (improved) ABDOMEN: soft, non-distended, non-tender, bowel sounds heard, no guarding or rebound tenderness SKIN: No Rash or ecchymoses EXTREMITIES: no pitting edema, no tenderness, able to move all 4 extremities, pedal pulses palpated Objective Labs 12/02/24 05:45 12/02/24 05:45 Labs: Laboratory Results - last 24 hr 11/30/24 11/30/24 11/30/24 10:17 13:36 19:19 WBC RBC Hgb Hct MCV MCH MCHC RDW Std Deviation Plt Count Neut % (Auto) Lymph % (Auto) Loving % (Auto) Eos % (Auto) Baso % (Auto) Neut # (Auto) Lymph # (Auto) Loving # (Auto) Eos # (Auto) Baso # (Auto) Immature Gran # (Auto) Absolute Nucleated RBC Immature Gran % Nucleated RBC % Sodium Potassium 2.8 L 2.9 L Chloride Carbon Dioxide Anion Gap BUN Creatinine Estim Creat Clear Calc eGFR BUN/Creatinine Ratio Glucose Calculated Osmolality Calcium Corrected Calcium Phosphorus Magnesium 1.7 2.4 Total Bilirubin AST ALT Alkaline Phosphatase Troponin I 0.034 Total Protein Albumin Globulin Albumin/Globulin Ratio 12/01/24 12/01/24 00:41 05:10 WBC 8.8 D RBC 3.88 L Hgb 11.2 L Hct 35.1 L MCV 91 MCH 28.9 MCHC 31.9 RDW Std Deviation 54.4 H Plt Count 263 D Neut % (Auto) 77 Lymph % (Auto) 12 Loving % (Auto) 10 Eos % (Auto) 0 Baso % (Auto) 0 Neut # (Auto) 6.8 Lymph # (Auto) 1.1 Loving # (Auto) 0.8 Eos # (Auto) 0.0 Baso # (Auto) 0.0 Immature Gran # (Auto) 0.03 H Absolute Nucleated RBC 0.00 Immature Gran % 0 Nucleated RBC % 0 Sodium 143 Potassium 3.4 D 3.5 Chloride 107 Carbon Dioxide 27.2 Anion Gap 9 BUN 18 Creatinine 1.6 H Estim Creat Clear Calc 63.2 eGFR 51 L BUN/Creatinine Ratio 11 L Glucose 99 D Calculated Osmolality 286 Calcium 7.5 L Corrected Calcium 7.7 L Phosphorus 4.4 Magnesium 2.1 Total Bilirubin 1.3 H D AST 13 ALT 18 Alkaline Phosphatase 52 Troponin I Total Protein 6.2 Albumin 3.8 Globulin 2.4 Albumin/Globulin Ratio 1.6 ABG Interpretation ABG results: 11/29/24 20:14 ABG pH 7.37 ABG pCO2 38 ABG pO2 78 L ABG HCO3 22 ABG O2 Saturation 93 ABG Base Excess -3 Quality Measures Quality Measures VTE prophylaxis Assessment & Plan Assessment Current Active Medications: Generic Name Dose Route Start Last Admin Trade Name Freq PRN Reason Stop Dose Admin Acetaminophen 650 mg 11/29/24 20:50 Acetaminophen 325 Mg Tablet PO 12/29/24 20:49 Q6H PRN Fever >100.3 or pain 1-3 Hydrocodone Bitart/Acetaminophen 1 tab 11/30/24 20:07 12/01/24 07:00 Hydrocodone/Apap 5/325 Tablet PO 12/05/24 20:06 1 tab Q6HR PRN Administration Pain 4-10 Apixaban 5 mg 11/29/24 21:00 12/01/24 09:01 Apixaban 2.5 Mg Tablet PO 12/29/24 20:59 5 mg BID LIZETTE Administration Calcium Carbonate 600 mg 12/01/24 09:00 12/01/24 09:01 Calcium Carbonate 600 Mg Tablet PO 12/31/24 08:59 600 mg QDAY LIZETTE Administration Calcium Carbonate 600 mg 12/01/24 14:00 Calcium Carbonate 600 Mg Tablet PO 12/01/24 14:01 X1 ONE Diltiazem HCl 30 mg 11/30/24 06:00 12/01/24 05:12 Diltiazem 30 Mg Tablet PO 12/30/24 05:59 30 mg QID LIZETTE Administration Furosemide 40 mg 12/01/24 10:45 Furosemide Inj 10 Mg/Ml 4ml Vial IVP 12/31/24 10:44 QDAY LIZETTE Levalbuterol HCl 0.63 mg 11/29/24 20:50 12/01/24 10:12 Levalbuterol Rt 0.63 Mg/3 Ml Nebu INH 12/29/24 22:59 0.63 mg Q4HRRT PRN Administration wheezing Metoprolol Tartrate 25 mg 12/01/24 10:45 Metoprolol Tartrate 25 Mg Tablet PO 12/31/24 10:44 BID LIZETTE Ondansetron HCl 4 mg 11/29/24 20:50 Ondansetron Inj 2 Mg/Ml Inj 2 Ml IV 12/29/24 20:49 Q6H PRN NAUSEA OR VOMITING Protocol Sennosides 1 tab 11/29/24 20:50 Senna Tablet PO 12/29/24 20:49 QDAY PRN constipation Protocol Spironolactone 12.5 mg 12/01/24 10:45 Spironolactone 25 Mg Tablet PO 12/31/24 10:44 BID LIZETTE Plan 54-year-old male with a previous medical history of hypertension, A-fib on Eliquis, 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 Patient is going to be admitted for A-fib with RVR rate control and management. #Hypokalemia- improved #Hypomagnesemia - resolved #Hypocalcemia -On admission pt K+ was 2.6, Mg < 0.5 and calcium 7.5, likely secondary to GI loses as pt has chronic loose stool s/p small bowel resection - 120 meq of K+ is repleted, 12 g Mg repleted with calcium carbonate -will continue to monitor CMP and replete as needed -started calcium carbonate BID #Acute hypoxic respiratory failure 2/2 #CHF exacerbation #Severe systolic dysfunction, EF 25-30% #Dilated Cardiomyopathy #Afib with RVR -Patient has a history of Afib with RVR, HR at admission was >120. Blood pressure was stable. -Well's score 1.5, low suspicion for PE. -ASCVD risk stratification:5.1% Risk of cardiovascular event (coronary or stroke or non-fatal NH or stroke) in next 10 years. -3.6% 10-year cardiovascular risk if risk factors were optimal -Moderate-intensity statin recommended because of 10-year risk between 5-7.5%. -[id number] score is 3, HAS-BLED 2 -Echo completed on 10/30: Dilated cardiomyopathy Mildly dilated LV with severely reduced ejection fraction of around 25 to 30%. Mild LVH Diastolic dysfunction present but cannot be graded because of the [id number] Normal RV size and function. Estimated RVSP moderately elevated at 47 mmHg Severe RA dilatation as well as massive LA dilatation. Moderate MR, mild MAC, mild AI and moderate TR. Dilated IVC Plan: -Transitioned diltiazem drip at 5 mg/h to diltiazem PO -Resumed home Eliquis 5 mg twice daily -GDMT started: Entresto, metoprolol, spironolactone, lasix -Strict Ins and Outs -Fluid restriction to 1500cc #Acute kidney injury -On admission Cr 1.8, baseline 1.2. Most likely dehydration due to the GI losses, nutrients and electrolytes with chronic diarrhea. 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 Liver US showed liver with fatty infiltration. -likely secondary to chronic amiodarone use for a-fib, pt states his manager family switched him from amiodarone to diltiazam Plan: -Monitor CMP -follow-up outpatient Health Maintenance Disposition: Telemetry DVT Prophylaxis: Pt is on eliquis BID GI Prophylaxis: not indicated Diet: Cardiac Diet Lines: Peripheral lines Assessment and plan discussed with my senior resident Dr. Mendiola & attending physician Dr. Marcela Heller (PGY-1)- Internal medicine resident Attending Provider Attestation/Addendum I attest that I was physically present for the evaluation, physical examination, lab and imaging review of the patient with the residents. I discussed the case with the residents and agree with the findings and plans of care as documented above. Overnight, patient had A-fib with RVR, heart rate ranging from 110s to 119.? We will add metoprolol 25 twice daily.? Patient also noted to have calcium of 7.7, we will continue with calcium carbonate twice daily.? Had a potassium of 3.5, received 40 mill equivalent potassium chloride. ?Also started Lasix 40 IV daily and spironolactone half tablets twice daily.? At bedside, patient continues to complain of mild shortness of breath, is saturating well on room air.? With the diuresis and addition of metoprolol, we will monitor him for 1 more day.? Patient's heart rate gets controlled below 110, he feels less short of breath, we will plan for discharge tomorrow. Samanta Medrano MD
[2024-12-01] MEDS: FUROSEMIDE INJ 10 MG/ML 4ML VIAL 40 MG IVP (11:36)
[2024-12-01] MEDS: SPIRONOLACTONE 25 MG TABLET 12.5 MG PO (11:37)
[2024-12-01] MEDS: METOPROLOL TARTRATE 25 MG TABLET PO (11:37)
--- NOTE | 2024-12-01 14:26 | PC.NURSE ---
Hand off given to Jeremy NAVARRO at bedside. pt. states no issues and in no apparent distress. Needs and POC discussed with Jeremy NAVARRO, Michelle NAVARRO and pt.
--- NOTE | 2024-12-01 15:59 | PC.NURSE ---
Notified Dr Brush that patient is having continued diarrhea/loose stools x4 bowel movements today. No orders given.
[2024-12-01] MEDS: LIDOCAINE 5% 1 PATCH TOP (20:41)
[2024-12-01] MEDS: SACUBITRIL 24 MG/VALSARTAN 26 MG TABLET 0.5 TAB PO (20:42)
[2024-12-01] MEDS: guaiFENesin SYRUP 200 MG/10 ML UDC 100 MG PO (20:43)
[2024-12-02] VITALS (10 sets, daily range): BP systolic 97–126; BP diastolic 67–90; PULSE 92–124; RESP 15–23; TEMP 36.2–36.7; O2SAT 92–95; BMI 33.5
[2024-12-02] MEDS: MORPHINE SULF INJ 10 MG/ML VIAL IVP (02:33)
[2024-12-02] MEDS: guaiFENesin SYRUP 200 MG/10 ML UDC PO (03:11)
--- NOTE | 2024-12-02 05:02 | PC.NURSE ---
field evidence technician notified me that heart rate reached up to 150's and was having 5 beats of PVC's, went to assess patient and patient was up to the restroom, notified patient that his heart rate was high in the 140's-150's and sustaining and had to notify the provider, patient stated you do not have to call the doctor if I was just using the restroom, there is no need . Patient educated that having a high heart rate needs to be controlled due to rhythm. Patient stated that was sleeping fine after given morphine and had to be woken up to use restroom . Patient advised to use NC due to oxygen at room air at 88% stated that the reason I'm not getting enough oxygen is because I am sitting up and having to use the restroom compressing my diaphragm . patient educated on the need of oxygen requirement but patient is refusing to use NC. MD made aware of patient HR and refusing NC. MD stated they will put new orders of diltiazem IV but d/c due to having diltiazem PO scheduled at 0600.
[2024-12-02] MEDS: DILTIAZEM 30 MG TABLET PO ×2 (05:15→12:41)
[2024-12-02 05:59] LABS: Basophils # (Auto) 0.1 Thou/mm3 (0.0-0.2); Basophils % (Auto) 1 % (0-2.5); Eosinophils # (Auto) 0.1 Thou/mm3 (0.0-0.5); Eosinophils % (Auto) 1 % (0-10); Hematocrit 35.5 % (41.0-53.0); Hemoglobin 11.2 g/dL (13.5-16.0); Immature Granulocytes % (Auto) 0 % (0-0); Immature Granulocytes Auto 0.01 Thou/mm3 (0.00-0.00); Lymphocytes # (Auto) 1.3 Thou/mm3 (1.0-4.8); Lymphocytes % (Auto) 17 % (10-50); Mean Corpuscular HGB Conc 31.5 g/dl (31.0-37.0); Mean Corpuscular Hemoglobin 28.4 pg (25.0-35.0); Mean Corpuscular Volume 90 fL (80-100); Monocytes # (Auto) 0.5 Thou/mm3 (0.0-0.8); Monocytes % (Auto) 7 % (0-12); Neutrophils # (Auto) 5.5 Thou/mm3 (1.8-7.7); Neutrophils % (Auto) 74 % (37-80); Nucleated Red Blood Cell % 0 /100 WBC (0); Platelet Count 301 Thou/mm3 (140-440); RDW Standard Deviation 53.4 fL (35.1-43.9); Red Blood Count 3.95 Miln/mm3 (4.50-5.90); White Blood Count 7.5 Thou/mm3 (3.8-10.6)
[2024-12-02 06:25] LABS: Alanine Aminotransferase 16 U/L (10-49); Albumin, Serum 3.8 gm/dL (3.5-5.0); Albumin/Globulin Ratio 1.5 (1.2-2.2); Alkaline Phosphatase 55 U/L (46-116); Anion Gap 11 (7-16); Aspartate Amino Transferase 13 U/L (0-34); BUN/Creatinine Ratio 13 Ratio (12-20); Bilirubin,Total 1.2 mg/dL (0.3-1.2); Blood Urea Nitrogen 18 mg/dL (9-23); Calcium 7.8 mg/dL (8.3-10.6); Carbon Dioxide 26.4 mMol/L (20.0-31.0); Chloride 106 mMol/L (98-107); Creatinine (Component) 1.4 mg/dL (0.6-1.3); Estimated Creatinine Clearance 72.7 mL/min (>60); Globulin 2.5 gm/dL (2.3-3.5); Glucose 84 mg/dL (74-106); Magnesium 1.7 mg/dL (1.6-2.6); Osmolality,Calculated 285 (275-295); Phosphorous 3.5 mg/dL (2.4-5.1); Potassium 3.2 mMol/L (3.4-5.1); Sodium 143 mMol/L (136-145); Total Protein 6.3 gm/dL (5.7-8.2); eGFR 59 See Note
[2024-12-02] MEDS: SACUBITRIL 24 MG/VALSARTAN 26 MG TABLET 0.5 TAB PO (09:09)
[2024-12-02] MEDS: POTASSIUM CHLORIDE 10% 20 MEQ/15 ML UDC 40 MEQ PO (09:09)
[2024-12-02] MEDS: Magnesium Sulfate 4 GM Ivpb 4 GM/50 ML BAG IV (09:10)
[2024-12-02] MEDS: CALCIUM CARBONATE 600 MG TABLET PO (09:10)
[2024-12-02] MEDS: APIXABAN 2.5 MG TABLET 5 MG PO (09:10)
[2024-12-02] MEDS: FUROSEMIDE INJ 10 MG/ML 4ML VIAL 40 MG IVP (09:10)
--- NOTE | 2024-12-02 10:59 | PC.NURSE ---
Discharge pending transportation between [phone].
--- NOTE | 2024-12-02 11:23 | PC.SS ---
SS follow up note: Patient has discharge orders to discharge home today.
[2024-12-02] MEDS: DILTIAZEM CD 120 MG CAPCR PO (12:40)
--- NOTE | 2024-12-02 13:08 | ESDS_ITS ---
Planned Discharge Date 12/02/24 DS: Providers Provider Date of admission: 11/29/24 20:50 Primary care physician: Tamiko Means([facility]), PREETI Admitting Provider: Tl Sharif MD Attending Provider on Admission: Samanta Medrano MD Attending Provider on DC: Gwyn Heller MD Discharging Provider: Gwyn Heller MD DS: Diagnosis Problem List Completed Was Problem List Reviewed/Reconciled?: Yes Hospital Course Hospital Course Hospital course: Mr. 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 Patient was found to have be in A-fib with RVR and patient was started on diltiazem drip and transition to oral diltiazem. Repeat echo was ordered which showed severe systolic dysfunction with ejection fraction of 25 to 30% patient was started on goal-directed medical therapy with Entresto, metoprolol, spironolactone and Lasix however patient was unable to tolerate metoprolol and spironolactone and refused to take the medication. Patient states that his welding machine setter Dr. Terry has taken him off of spironolactone and metoprolol as well as carvedilol and had referred the patient for ski base trimmer to get a pacemaker for his heart. On admission patient was also found to have severe symptomatic hypokalemia with potassium of 2.6 as well as hypomagnesemia and hypocalcemia which all 3 were adequately repleted however patient continues to have watery stool due to small bowel resection since May and was prescribed potassium outpatient but never picked up the medication. Patient is advised to follow-up with his welding machine setter to discuss goal-directed medical therapy for his CHF. During hospitalization patient was also found to have elevated billirubin and fatty liver disease found on liver ultrasound patient is advised to follow-up outpatient for further workup and surveillance. Patient is hemodynamically stable with resolution of shortness of breath patient is saturating on room and ready to be discharged home to self patient is recur or worsen to promptly return to the ED. 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 #Fatty liver disease #Elevated billirubin- improving Hospitalization Diagnosis -Please see your primary care physician within 1 week after discharge -Please see your welding machine setter within 1 week after discharge to discuss GDMT for CHF -You have been prescribed calcium carbonate for 1 week -You have been prescribed potassium and magnesium, please take them regularly and check with your primary care for labs -You have been prescribed lasix daily, if you notice swelling in your legs please take an extra lasix pill that day -Continue to take all you medications as prescribed -If your symptoms return or worsen please return to the ED promptly Assessment and plan discussed with my attending physician Dr. Marcela Heller (PGY-1)- Internal medicine resident Time Spent with Patient Time attestation: Total time spent providing and/or coordinating discharge services: Time spent: Less than 30 minutes Exam Vital Signs Temp Pulse Resp BP Pulse Ox O2 Del Method O2 Flow Rate 97.4 F 110 H 15 97/72 92 L Room Air 2 12/02/24 08:00 12/02/24 12:41 12/02/24 08:00 12/02/24 12:41 12/02/24 08:00 12/02/24 08:00 12/01/24 16:00 Discharge Plan Plan Patient Disposition: HOME (Self Care) Patient condition on transfer: Stable Care Plan Goals: -Please see your primary care physician within 1 week after discharge -Please see your welding machine setter within 1 week after discharge to discuss GDMT for CHF -You have been prescribed calcium carbonate for 1 week -You have been prescribed potassium and magnesium, please take them regularly and check with your primary care for labs -You have been prescribed lasix daily, if you notice swelling in your legs please take an extra lasix pill that day -Continue to take all you medications as prescribed -If your symptoms return or worsen please return to the ED promptly Prescriptions/Referrals Prescriptions/Med Rec: New calcium carbonate 600 mg calcium (1,500 mg) Tablet 600 mg PO QDAY 7 Days Qty: 7 0RF magnesium 200 mg tablet 200 mg PO BID Qty: 60 3RF potassium chloride 8 mEq capsule, extended release 8 meq PO BID Qty: 60 3RF furosemide [Lasix] 40 mg tablet 40 mg PO QDAY Qty: 30 3RF diltiazem HCl 240 mg capsule,extended release 24hr 240 mg PO QDAY Qty: 30 3RF Continued loperamide 2 mg capsule 2 mg PO QDAY Qty: 30 1RF famotidine 20 mg tablet 20 mg PO QDAY Qty: 30 3RF Patient Comments: TAKE 1 TABLET BY MOUTH EVERY DAY Eliquis 5 mg tablet 5 mg PO Q12H Qty: 30 3RF Patient Comments: TAKE 1 TABLET BY MOUTH TWICE DAILY dapagliflozin propanediol [Farxiga] 10 mg tablet 10 mg PO DAILY Qty: 30 3RF Patient Comments: TAKE 1 TABLET BY MOUTH EVERY DAY IN THE MORNING Entresto 24-26 mg tablet 1 tab PO QDAY Qty: 30 3RF Patient Comments: TAKE 1 TABLET BY MOUTH TWICE DAILY Discontinued losartan 50 mg tablet 50 mg PO QDAY Patient Comments: TAKE 1 TABLET BY MOUTH EVERY DAY carvedilol 6.25 mg tablet 6.25 mg PO BID Patient Comments: TAKE 1 TABLET BY MOUTH TWICE DAILY amiodarone 100 mg tablet 100 mg PO BID Patient Comments: TAKE 1 TABLET BY MOUTH TWICE DAILY Referrals: Miguelangel(Steve)Tamiko PA-C [Primary Care Provider] - Patient/Caregiver Discharge Instructions Education Materials: Your Heart Is at Risk, Your Heart Risk Action Plan, ED Hypokalemia Print Language: Occitan Stand Alone Forms: [employer]y Award Info., Patient Portal Info Letter Discharge Order Discharge Orders: Discharge (Routine); Ordered 12/02/24 Ordered By: Gwyn Heller Quality Discharge Quality Measures VTE prophylaxis Attestestation MD Attestation I attest that I was physically present for the evaluation, physical examination, lab and imaging review of the patient with the residents. I discussed the case with the residents and agree with the findings and plans of care as documented above. Samanta Medrano MD
== END 2024-12-02 16:28 | disposition home or self-care (01) | DRG 201 ==
LOC: SERX 19:48 → SERHOLD 21:04 → S2NX 22:39
PROVIDERS: Admitting Provider Internal Medicine; Emergency Provider Emergency Medicine; PCP Nurse Practitioner Family; Visit Provider Student in an Organized Health Care Education/Training Program
DX: I48.91 Unspecified atrial fibrillation (principal); I11.0 Hypertensive heart disease with heart failure; J96.01 Acute respiratory failure with hypoxia; N17.9 Acute kidney failure, unspecified; E87.6 Hypokalemia; E83.42 Hypomagnesemia; K76.0 Fatty (change of) liver, not elsewhere classified; K21.9 Gastro-esophageal reflux disease without esophagitis; E11.9 Type 2 diabetes mellitus without complications; E83.51 Hypocalcemia; I50.20 Unspecified systolic (congestive) heart failure; I42.0 Dilated cardiomyopathy; K52.9 Noninfective gastroenteritis and colitis, unspecified; I95.9 Hypotension, unspecified; J44.9 Chronic obstructive pulmonary disease, unspecified; M54.9 Dorsalgia, unspecified; Z79.01 Long term (current) use of anticoagulants; Z87.891 Personal history of nicotine dependence; Z79.899 Other long term (current) drug therapy
CPT/HCPCS: 36415; 36600; 71045; 80053; 80061; 81001; 82803; 83735; 83880; 84100; 84132; 84443; 84484; 85025; 85379; 85610; 85730; 87634; 87811; 93005; 93306; 94640; 96365; 96366; 96368; 96374; 96375; 99285; J1885; J1938; J2270; J2919; J3475; J3480; J3490; A9270

== ENCOUNTER 2025-07-08 16:38 | Emergency (ER) | payer MEDICAID, SELFPAY ==
[2025-07-08 16:39] VITALS: BMI 34.7
[2025-07-08 16:53] VITALS: BP 149/91; PULSE 58; RESP 20; TEMP 36.9; O2SAT 98
--- NOTE | 2025-07-08 17:15 | XR_ITS ---
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
--- NOTE | 2025-07-08 17:16 | EDNOTE_ITS ---
Lower Extremity Injury RME/HPI General Chief Complaint: Ankle/Foot Injury Stated Complaint: FEELS LIKE SCREWS IN R ANKLE ARE MISPLACED Time Seen by Provider: 07/08/25 17:13 Arrival date/time: 07/08/25 16:38 RME / HPI RME / HPI Narrative: 54-year-old male with a past medical history of a remote right ankle ORIF presents to the ER complaining of increased pain which has been gradual in onset and worse with extreme inversion of his ankle x 2 months. Denies fever, numbness, tingling, weakness. He was seen at the [facility] and they advised him to come to the ER to get an x-ray and they can then arrange for screw removal which is what he is requesting. Related Data Previous Rx's ?Medication ?Instructions ?Recorded apixaban 5 mg tablet (Eliquis) 5 mg PO Q12H blood thin ner #30 tabs 12/02/24 dapagliflozin propanediol 10 mg 10 mg PO DAILY diabete s #30 tabs 12/02/24 tablet (Farxiga) diltiazem HCl 240 mg 240 mg PO QDAY #30 caps 05/20 capsule,extended release 24 hr famotidine 20 mg tablet 20 mg PO QDAY gerd #30 tabs 12/02/24 furosemide 40 mg tablet (Lasix) 40 mg PO QDAY #30 tabs 12/02/24 loperamide 2 mg capsule 2 mg PO QDAY diahrrea #30 ca ps 12/02/24 magnesium 200 mg tablet 200 mg PO BID #60 tabs 12/02 potassium chloride 8 mEq 8 meq PO BID #60 caps capsule,extended release sacubitril 24 mg-valsartan 26 mg 1 tab PO QDAY chf #30 tabs 12/02/24 tablet (Entresto) Allergies Allergy/AdvReac Type Severity Reaction Status Date / Time No Known Allergies Allergy Verified 07/08/25 16:41 ED Exam Narrative Physical exam: Constitutional: Vital Signs Reviewed. Well appearing. No acute distress. Not toxic appearing. Head: Normocephalic, atraumatic. Eyes: Conjunctiva clear. ENT: Mucous membranes moist. Neck: Trachea midline. Normal range of motion. No nuchal rigidity. Respiratory: Normal effort. No respiratory distress or accessory muscle use. Neuro: Alert and oriented. Speech normal. No focal gross motor or sensory deficits observed. Skin: Warm, dry, normal color. Psych: Pleasant. Normal affect. Cooperative. Extremity: Right lateral malleolus with minimal soft tissue swelling adjacent to it and tenderness along with mild limited range of motion and strength 4+ out of 5 secondary to pain. No erythema, ecchymosis, heat. Dorsalis pedis pulse 2+ regular in rhythm. Compartments remain soft. Course Quality Measures none Orders Category Date Time Status splint [Splint / Immobilizer] STAT Care 07/08/25 19:18 Completed XR ankle RT 2V Stat Exams 07/08/25 17:15 Completed Ketorolac Inj [Toradol Inj] Med 07/08/25 17:16 Discontinued 30 mg IM X1 ONE Vital Signs Vital signs: Vital Signs Temperature 98.5 F 07/08/25 16:53 Pulse Rate 58 L 07/08/25 16:53 Respiratory Rate 20 07/08/25 16:53 Blood Pressure 149/91 H 07/08/25 16:53 Pulse Oximetry (%) 98 07/08/25 16:53 Oxygen Delivery Method Room Air 07/08/25 16:53 Extremity Injury, Lower MDM Narrative MDM Narrative:: 54-year-old male with a past medical history of remote ORIF presents to the ER for x-ray as he states his ankles been hurting him more so in the past 2 months without a direct trauma as of recent Concern for acute on chronic strain right sprain versus acute on chronic occult fracture or dislocation No signs of septic arthritis clinically Right lower extremity remains distally neurovascularly intact with soft compartments X-rays notable for posttraumatic arthritis without signs of periprosthetic fracture or hardware migration Plan for RICE therapy, Aircast, weight bearing as tolerated, follow-up with PMD and orthopedics in 1 to 2 days however patient eloped prior to reevaluation and discussion of plan Patient data External records reviewed:: [facility] previous records Clinical information provided by:: patient Social determinants that could affect healthcare access:: none Patient has the following chronic illnesses:: None How is presenting disease/condition affected by chronic disease/condition?: no chronic disease Evaluation data The following diagnostics were reviewed and interpreted by me:: radiology exam(s) Lab and/or radiology exams considered but not ordered:: Additional Labs and radiology considered, but not ordered as they were not clini tiff indicated at this time. Interpretation Summary: As noted Medications / Prescriptions Medications or Prescriptions considered but not ordered:: I considered prescription management (both outpatient prescriptions AND drug treatment in the ER) and decided that this was necessary and was prescribed as charted. Medication administrations:: Medication Administration History Discontinued Medications Ketorolac Tromethamine (Ketorolac Inj 30 Mg/Ml Vial) 30 mg IM X1 ONE Stop: 07/08/25 17:17 Last Admin: 07/08/25 19:16 Dose: Not Given Documented By: Non-Admin Reason: Patient Refused As noted Consultations Consultation(s) initiated? (list below): No Diagnosis Extremity Injury, Lower Differential Diagnosis: ankle sprain and strain and ankle fracture Most likely diagnosis given after review of the tests above:: Posttraumatic arthritis Admission Indicated Admission indicated?: not indicated Admission Request Was there a request for admission?: No Disposition Plan Disposition Plan: other (specify) Discharge Plan Plan Patient Disposition: Elopement Patient condition on transfer: Stable Prescriptions/Referrals Prescriptions/Med Rec: No Action magnesium 200 mg tablet 200 mg PO BID Qty: 60 3RF potassium chloride 8 mEq capsule, extended release 8 meq PO BID Qty: 60 3RF furosemide [Lasix] 40 mg tablet 40 mg PO QDAY Qty: 30 3RF loperamide 2 mg capsule 2 mg PO QDAY Qty: 30 1RF famotidine 20 mg tablet 20 mg PO QDAY Qty: 30 3RF Patient Comments: TAKE 1 TABLET BY MOUTH EVERY DAY Eliquis 5 mg tablet 5 mg PO Q12H Qty: 30 3RF Patient Comments: TAKE 1 TABLET BY MOUTH TWICE DAILY dapagliflozin propanediol [Farxiga] 10 mg tablet 10 mg PO DAILY Qty: 30 3RF Patient Comments: TAKE 1 TABLET BY MOUTH EVERY DAY IN THE MORNING Entresto 24-26 mg tablet 1 tab PO QDAY Qty: 30 3RF Patient Comments: TAKE 1 TABLET BY MOUTH TWICE DAILY diltiazem HCl 240 mg capsule,extended release 24hr 240 mg PO QDAY Qty: 30 3RF Referrals: Michael Kim PA-C [Primary Care Provider] - In 1 week Problem List Clinical Impression: Ankle sprain, Post-traumatic arthritis of ankle Patient/Caregiver Discharge Instructions Education Materials: Arthritis: Exercise, ED Ankle Sprain (Adult) Additional Instructions: Follow up with your primary medical doctor and an orthopedic doctor within 24 hours. Return to the Emergency Room immediately for any new, worsening, continuing symptoms or any concerns at all. Return to the Emergency Room within 24 hours if you are unable to follow up with your primary medical doctor and an orthopedic doctor within 24 hours. Print Language: [place] Stand Alone Forms: Chey Award Info., Patient Portal Info Letter PA/[employer] Supervising Physician PA/[employer] Supervising Physician: Dr. Keating
== END 2025-07-08 19:46 | disposition left against medical advice (07) ==
PROVIDERS: Emergency Provider Emergency Medicine; PCP Physician Assistant
DX: S93.401D Sprain of unspecified ligament of right ankle, subsequent encounter (principal); X58.XXXD Exposure to other specified factors, subsequent encounter
CPT/HCPCS: 73600; 99282